=== PATIENT | male | born 1970 | race Hispanic/Latino ===

== ENCOUNTER 2018-01-15 02:38 | Observation (INO) | payer BC ==
[2018-01-15] MEDS ORDERED: Morphine 4 MG/ML VIAL ONE (03:03)
[2018-01-15] MEDS ORDERED: Ondansetron PF 4 MG/2 ML Vial ONE (03:04)
[2018-01-15 03:21] LABS: ALT (SGPT) 29 U/L (8-55); AST (SGOT) 26 U/L (5-34); Albumin 4.6 g/dL (3.5-5.0); Alkaline Phosphatase 42 U/L (40-150); Anion Gap 14 mmol/L (10-20); BUN (Urea Nitrogen) 12 mg/dL (8.9-20.6); Bilirubin, Total 0.5 mg/dL (0.2-1.2); Calc. Creatinine Clearance 0 mL/min (70-130); Carbon Dioxide 26 mmol/L (22-29); Chloride 106 mmol/L (98-107); Estimated GFR-MDRD Greater than 90; Globulin 2.6 g/dL (2.4-3.5); Glucose 156 mg/dL (70-105); Lipase 42 U/L (8-78); Potassium 3.9 mmol/L (3.5-5.1); Protein, Total 7.2 g/dL (6.0-8.3); Sodium 142 mmol/L (136-145)
[2018-01-15 03:23] LABS: CKMB 3.4 ng/mL (0-6.6); Troponin I Less than 0.010 ng/mL (< 0.028)
[2018-01-15 03:29] LABS: #Basophils 0.1 thou/uL (0.0-0.2); #Lymphocytes 0.8 thou/uL (1.20-3.40); #Monocytes 0.3 thou/uL (0.11-0.59); #Neutrophils 9.5 thou/uL (1.40-6.50); %Basophils 0.5 % (0.0-1.0); %Lymphocytes 7.5 % (21.0-51.0); %Monocytes 2.5 % (0.0-10.0); %Neutrophils 89.5 % (42.0-75.0); Mean Corpuscular HGB CONC 33.3 g/dL (32.0-36.0); Mean Corpuscular Hemoglobin 30.7 pg (27.0-31.0); Mean Corpuscular Volume 92.1 fL (78.0-98.0); Mean Platelet Volume 10.7 fL (7.4-10.4); PLT Morphology Comment Appears Decreased; Platelet Count 102 thou/uL (130-400); RBC Distribution Width 10.8 % (11.5-14.5); Red Blood Cell (RBC) Count 5.21 mill/uL (4.70-6.10); White Blood Cell (WBC) Count 10.6 thou/uL (4.8-10.8)
[2018-01-15 07:30] LABS: Troponin I Less than 0.010 ng/mL (< 0.028)
[2018-01-15] MEDS ORDERED: Nitroglycerin 0.4 MG TAB (25 Tab Bottle) PO PRN (09:03)
--- NOTE | 2018-01-15 09:06 | RAD ---
AP CHEST: History: 47-year-old presents with history of abdominal pain, left upper quadrant epigastric area. FINDINGS: AP chest obtained. The lungs are well aerated. No evidence of active intrathoracic disease seen. No e vidence of effusions, pneumonia, or pneumothorax seen. IMPRESSION: Unremarkable AP chest. POS: [facility]
[2018-01-15 10:36] LABS: Troponin I Less than 0.010 ng/mL (< 0.028)
[2018-01-15 11:49] VITALS: BMI 32.8
[2018-01-15] MEDS ORDERED: hydrALAZINE 20 MG/ML VIAL SLOW IVP PRN (12:29)
--- NOTE | 2018-01-15 12:59 | HP ---
PRIMARY CARE PROVIDER: Jn Kearney MD CHIEF COMPLAINT: Left upper quadrant pain. HISTORY OF PRESENT ILLNESS: Mr. Chaudhry is a pleasant 39-year-old gentleman who was seen at [facility] following transfer from [facility] Emergency Room on January 15, 2018. He reports that he had a heavy dinner yesterday. After that, he was resting when he developed pain i n his left upper quadrant, extending into the epigastrium. He reports that it was radiating to his b ack between his shoulder blades. He felt restless and could not sleep. He tried Pepto-Bismol and Tu ms but could not find any relief. Tylenol helped a little. He vomited twice this morning. He also had 2 bowel movements overnight, but he did not have diarrhea. His reports that he was diaphore tic. He did not have any fever. In terms of the pain itself, it was sharp and 9/10 at its worst. Behzad jimenez reports that yesterday afternoon, he did not feel well at work, but did not have any other symptoms . REVIEW OF SYSTEMS: All other systems reviewed and found to be negative. PAST MEDICAL HISTORY: Dyslipidemia and hypertension. PAST SURGICAL HISTORY: None. SOCIAL HISTORY: Rare alcohol use, no tobacco use or recreational drug use. FAMILY HISTORY: Father had abdominal aortic aneurysm repair when he was in his 80s. He also has jg betes mellitus and hypertension. His sister had hemorrhagic stroke in her 50s. ALLERGIES: No known drug allergies. CURRENT MEDICATIONS: Valsartan/hydrochlorothiazide 320/25 mg daily, Crestor 5 mg daily, and vitamin D3 of 2000 units daily. PHYSICAL EXAMINATION: GENERAL: Mr. Chaudhry is awake and alert, not in acute distress. VITAL SIGNS: Blood pressure is 137/73, pulse 76, respiratory rate 18, and oxygen saturation 94% on r oom air. He is afebrile. EYES: No scleral icterus. No conjunctival pallor. ENT: Moist mucosal membranes, no oropharyngeal erythema or exudates. NECK: Supple, nontender, trachea is midline. RESPIRATORY: Accessory muscles of breathing are not active. Chest wall movements are symmetric bila terally. LUNGS: Clear to auscultation without wheeze, rhonchi, or crepitations. CARDIOVASCULAR: S1 and S2 are heard, regular. Peripheral pulses palpable. No carotid bruit, no per icardial rub. ABDOMEN: Soft, nontender, bowel sounds are heard, no hepatomegaly, no splenomegaly. NEUROLOGIC: Cranial nerves II-XII are intact. MUSCULOSKELETAL: Power is 5/5 in all 4 extremities. SKIN: No rashes or subcutaneous nodules. LYMPHATIC: No cervical lymphadenopathy. PSYCHIATRIC: Normal mood, normal affect, patient is oriented to person, place, and time. LABORATORY DATA: Mr. Chaudhry's labs and investigations were reviewed. He had an electrocardiogram, w [facility] shows T-wave inversions in leads V3 to V6, no ST changes to suggest an acute coronary syndrome. He also had a chest x-ray, which did not show any acute cardiopulmonary abnormalities. He has kelli l white count, normal hemoglobin, decreased platelet count of 102,000, his platelet count was 123,000 on December 31, 2017, he has an unremarkable comprehensive metabolic profile and troponin I that is ne gative x3. Lipase is normal. ASSESSMENT AND PLAN: Mr. Chaudhry is a pleasant 47-year-old gentleman who was seen at [facility] on January 15, 2018. His problem list includes: 1. Abdominal pain: Mr. Chaudhry reports that he does not have the abdominal pain. Biochemistry and p hysical exam are unremarkable. Given the abnormal EKG, this could be atypical presentation of cardia c disease. We will request Cardiology Service consult. We will admit Mr. Chaudhry to Telemetry Servic e for observation. 2. Hypertension: We will continue his home medications and he is able to take oral medications. We will add p.r.n. IV hydralazine for blood pressure spikes. 3. Dyslipidemia: We will continue his statin when he is able to take oral medications. 4. Thrombocytopenia: Chronicity is unclear. I will have him follow up with his primary care provid er for further workup if needed. Many thanks for allowing me to participate in your patient's care. Please feel free to contact me wi th any questions or concerns. LEVEL OF RISK: Moderate. LEVEL OF COMPLEXITY: Moderate.
[2018-01-15] MEDS ORDERED: Communication Order-Pharmacy FS SCH (19:15)
[2018-01-15] MEDS ORDERED: Rosuvastatin 10 MG TAB PO SCH (21:00)
[2018-01-15] MEDS: Nitroglycerin 2% Ointment 1 INCH/1 GM Packet TOP SCH (21:59)
--- NOTE | 2018-01-15 23:46 | CON ---
DATE OF CONSULTATION: 01/15/2018 HISTORY: Noe Chaudhry is a 47-year-old male who denies any previous chest discomfort. Last night he ate a big meal and at 7-8 p.m. began to have some left upper quadrant pressure extending into the epigastrium. He denied any shortness of breath, nausea or vomiting, but did become diaphoretic. The pain also seemed to radiate back to his scapula. He could not sleep. He made himself vomit, which did not help. He then went to the emergency room at [facility], blood pressure initially was 170/82. He was given 324 mg of oral aspirin, morphine 4 mg IV, Zofran 4 mg IV. He states that with this, his chest pain resolved. Total duration of the pain was 7-8 hours. He states that the pain was continuously present during that time. At the present time, he is pain free. PAST MEDICAL HISTORY: Hypertension, hypercholesterolemia. No history of diabetes. MEDICATIONS: Valsartan/hydrochlorothiazide 320/25 q.a.m., Crestor 5 mg at bedtime. ALLERGIES: None. OPERATIONS: None. SOCIAL HISTORY: Does not smoke or drink. 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 FAMILY HISTORY: Negative for coronary artery disease, myocardial infarction, or sudden . His father does have an abdominal aortic aneurysm in his 80s, currently is being monitored by. REVIEW OF SYSTEMS: Twelve point review of systems otherwise unremarkable. PHYSICAL EXAMINATION: VITAL SIGNS: Blood pressure 129/66, pulse 69. HEENT: PERRL. NECK: Supple. CHEST: Clear. CARDIAC: S1 and S2 are normal, without any S3, S4 or murmurs. ABDOMEN: Normal bowel sounds, without tenderness, organomegaly. EXTREMITIES: Revealed no clubbing, cyanosis or edema. NEUROLOGIC: Grossly intact. SKIN: Warm and dry. LABORATORY DATA: EKG on admission to [facility] ER revealed significant T-wave inversion in V3 through V6, lead 1 and 2. Subsequent EKG at 5:05 a.m. showed improvement in the deep T-wave inversion and then another EKG performed at 5:15 a.m. He had resolution of the deep T-wave inversion except in V3, 1 and L. The deep T-wave inversion in V4 through V6 had resolved. Cardiac enzymes are normal. CBC is unremarkable except for platelet count 102,000. Sodium 142, potassium 3.9, chloride 106, carbon dioxide 26, BUN 12, creatinine 0.83, glucose when he arrived was 156. On 12/31/2017, cholesterol was 158, triglycerides 171, HDL 45, LDL 79. IMPRESSION: 1. Probable acute coronary syndrome with deep T-wave inversions V3 through V6 with dramatic improvement and resolution of the T-wave inversion in V4 through V6. However, he had continual 7 to 8 hours of chest pain with negative cardiac enzymes. However, I am very concerned about his EKG changes and this warrants further evaluation. 2. Hypertension. 3. Hypercholesterolemia with LDL of 79 in someone with probable coronary artery disease. 4. Hypertriglyceridemia and elevated blood sugars on last several determinations. Hemoglobin A1c will be checked. 5. Mild thrombocytopenia. PLAN: With his EKG changes and then improvement in the EKG, he needs to undergo cardiac catheterization. Risks of this were discussed including , myocardial infarction, dye reaction, vascular injury, CVA, transfusion, limb loss, renal loss, etc. with the patient and his . Also, risk of stent placement were discussed including , myocardial infarction, emergent CABG, restenosis, stent thrombosis, vessel perforation, etc. He does have mild thrombocytopenia, but does not have any history of gastrointestinal bleeding, stroke or upcoming surgeries. Overall, it was recommended that a drug-eluting stent be placed if needed. [facility]ARY
[2018-01-16 04:51] LABS: #Basophils 0.1 thou/uL (0.0-0.2); #Eosinphils 0.1 thou/uL (0.0-0.7); #Lymphocytes 2.5 thou/uL (1.20-3.40); #Neutrophils 6.1 thou/uL (1.40-6.50); %Basophils 0.6 % (0.0-1.0); %Eosinophils 0.8 % (0.0-10.0); %Lymphocytes 25.5 % (21.0-51.0); %Monocytes 10.1 % (0.0-10.0); Hemoglobin 14.7 g/dL (14.0-18.0); Mean Corpuscular HGB CONC 32.4 g/dL (32.0-36.0); Mean Corpuscular Hemoglobin 31.8 pg (27.0-31.0); Mean Corpuscular Volume 97.9 fL (78.0-98.0); Mean Platelet Volume 8.4 fL (7.4-10.4); Platelet Count 116 thou/uL (130-400); RBC Distribution Width 11.3 % (11.5-14.5); Red Blood Cell (RBC) Count 4.62 mill/uL (4.70-6.10); White Blood Cell (WBC) Count 9.7 thou/uL (4.8-10.8)
[2018-01-16 04:53] LABS: Hemoglobin A1c 5.3 % (4.0-6.0)
[2018-01-16 05:08] LABS: Anion Gap 11 mmol/L (10-20); BUN (Urea Nitrogen) 12 mg/dL (8.9-20.6); Calc. Creatinine Clearance 169 mL/min (70-130); Calcium 8.8 mg/dL (7.8-10.44); Carbon Dioxide 26 mmol/L (22-29); Chloride 107 mmol/L (98-107); Estimated GFR-MDRD Greater than 90; Glucose 95 mg/dL (70-105); Potassium 3.6 mmol/L (3.5-5.1); Sodium 140 mmol/L (136-145)
[2018-01-16] MEDS ORDERED: Sodium Chloride 0.9% 1,000 ML IV SCH ×2 (06:00→08:08)
[2018-01-16] MEDS: Nitroglycerin 2% Ointment 1 INCH/1 GM Packet TOP SCH (06:05)
[2018-01-16] MEDS ORDERED: Heparin 10,000 UNITS/1 ML VIAL ONE (06:31)
[2018-01-16] MEDS ORDERED: Lidocaine 1% (PF) 30 ML VIAL ONE ×2 (06:31→08:00)
[2018-01-16] MEDS ORDERED: Midazolam HCl 2 mg/2 ml Vial ONE (07:18)
[2018-01-16] MEDS ORDERED: Fentanyl 100 MCG/2 ML VIAL ONE (07:18)
[2018-01-16] MEDS ORDERED: Protamine Sulfate 50 MG/5 ML VIAL ONE (07:49)
[2018-01-16] MEDS ORDERED: Nitroglycerin 0.4 MG TAB (25 Tab Bottle) SL PRN (08:07)
[2018-01-16] MEDS ORDERED: Acetaminophen/Codeine 30-300mg Tablet PO PRN ×2 (08:07)
[2018-01-16] MEDS ORDERED: traMADol HCl 50 MG TAB PO PRN (08:07)
[2018-01-16] MEDS ORDERED: Sodium Chloride 0.9% 200 ML IV SCH (08:15)
[2018-01-16] MEDS ORDERED: Valsartan 80 MG TAB PO SCH ×2 (09:00)
[2018-01-16] MEDS ORDERED: Aspirin 325 MG TAB PO SCH (09:00)
[2018-01-16] MEDS: Hydrochlorothiazide 25 MG TAB PO SCH (09:54)
[2018-01-16] MEDS ORDERED: Iopamidol 370 76% 50 ML VIAL FS ONE (10:41)
[2018-01-16] MEDS ORDERED: Iopamidol 370 76% 100 ML VIAL ONE (10:41)
--- NOTE | 2018-01-16 16:51 | PDOC.PN ---
- Subjective Encounter Start Date: 01/16/18 Encounter Start Time: 09:00 Pt seen for followup re: chest pain. Denies chest pain, shortness of breath, fevers or chills. No nausea or vomiting. - Objective MAR Reviewed: Yes Vital Signs & Weight: Vital Signs (12 hours) Temp Pulse Resp BP BP Pulse Ox 01/16/18 15:53 98.4 F 66 16 122/59 L 97 01/16/18 11:10 59 L 16 109/60 95 01/16/18 08:25 97.1 F L 65 18 117/59 L 94 L 01/16/18 06:07 63 106/55 L Weight Weight 254 lb I&O: 01/15/18 01/16/18 01/17/18 06:59 06:59 06:59 Intake Total 710 1420 Output Total 1999 1450 Balance -1290 -30 Result Diagrams: 01/16/18 04:15 01/16/18 04:15 EKG Reviewed by me: Yes (Tele: NSR) Phys Exam - Physical Examination Constitutional: NAD HEENT: moist MMs Neck: supple Respiratory: clear to auscultation bilateral Cardiovascular: RRR Gastrointestinal: soft Neurological: moves all 4 limbs Psychiatric: normal affect Skin: no rash Dx/Plan (1) Chest pain Code(s): R07.9 - CHEST PAIN, UNSPECIFIED Status: Acute Comment: Improved, secondary to myocardial bridging. (2) Hypertension Code(s): I10 - ESSENTIAL (PRIMARY) HYPERTENSION Status: Chronic Comment: controlled. Pt being started on beta marni to increase time in diastole. Valsartan dose being decreased. - Plan * . Review of Systems - Review of Systems Cardiovascular: negative: chest pain, palpitations, orthopnea, paroxysmal nocturnal dyspnea, edema, light headedness Gastrointestinal: negative: Nausea, Vomiting, Abdominal Pain, Diarrhea, Constipation, Melena, Hematochezia - Medications/Allergies Allergies/Adverse Reactions: Allergies Allergy/AdvReac Type Severity Reaction Status Date / Time No Known Drug Allergies Allergy Verified 01/15/18 11:50 Medications: Current Medications Acetaminophen/Codeine Phosphate (Tylenol #3) 1 tab PO Q4H PRN PRN Reason: Mild Pain (1-3) Acetaminophen/Codeine Phosphate (Tylenol #3) 2 tab PO Q4H PRN PRN Reason: Moderate Pain (4-6) Aspirin (Ecotrin) 81 mg PO DAILY [facility] Hydralazine HCl (Apresoline) 10 mg SLOW IVP Q6H PRN PRN Reason: SBP Greater Than 170 Hydrochlorothiazide (Hydrochlorothiazide) 25 mg PO DAILY [facility] Last Admin: 01/16/18 09:54 Dose: 25 mg Metoprolol Succinate (Toprol Xl) 50 mg PO DAILY [facility] Last Admin: 01/16/18 09:54 Dose: 50 mg Nitroglycerin (Nitrostat) 0.4 mg SL Q5MIN PRN PRN Reason: Chest Pain Rosuvastatin Calcium (Crestor) 5 mg PO HS [facility] Sodium Chloride (Flush - Normal Saline) 10 ml IVF Q12HR [facility] Last Admin: 01/16/18 06:07 Dose: 10 ml Sodium Chloride (Flush - Normal Saline) 10 ml IVF PRN PRN PRN Reason: Saline Flush Tramadol HCl (Ultram) 50 mg PO Q6H PRN PRN Reason: Moderate Pain (4-6) Valsartan (Diovan) 160 mg PO DAILY [facility] Last Admin: 01/16/18 09:54 Dose: 160 mg
[2018-01-16] MEDS ORDERED: Rosuvastatin 5 MG TAB PO SCH (21:00)
[2018-01-17 05:18] VITALS: TEMP 98.2
[2018-01-17 08:33] VITALS: BP 129/60
[2018-01-17] MEDS ORDERED: Olmesartan 5 MG TAB PO SCH (09:00)
[2018-01-17] MEDS ORDERED: Aspirin 81 mg Enteric Coated Tablet PO SCH (09:00)
[2018-01-17] MEDS: Hydrochlorothiazide 25 MG TAB PO SCH (09:43)
--- NOTE | 2018-01-17 11:48 | DIS ---
DATE OF ADMISSION: 01/15/2018 DATE OF DISCHARGE: 01/17/2018 PRIMARY CARE PHYSICIAN: Jn Kearney MD DISCHARGE DISPOSITION: Home. PRIMARY DISCHARGE DIAGNOSES: 1. Chest pain. 2. Single three-vessel coronary artery disease. SECONDARY DISCHARGE DIAGNOSES: Hypertension, dyslipidemia, obesity with BMI 31. PRIMARY PROCEDURE/OPERATION: Cardiac catheterization by Dr. Medina and found with one-vessel coron ladi artery disease. SIGNIFICANT LABORATORY DATA: WBC 9.7, hemoglobin 14.7, and platelets 116. Sodium 140, potassium 3.6 , creatinine 0.86. Cardiac enzymes negative. LFT normal. DISCHARGE MEDICATIONS: Aspirin 81 mg p.o. daily, Metoprolol XL 50 mg p.o. daily, olmesartan with hyd rochlorothiazide 1 tablet p.o. daily, and Crestor 5 mg p.o. daily. CONTRAINDICATIONS: None. CODE STATUS: FULL CODE. INPATIENT CONSULTANTS: Dr. Medina was following while in hospital. TEST RESULTS PENDING ON DISCHARGE: None. ALLERGIES: No known drug allergy. DISCHARGE PLAN: Post hospital, the patient will follow up with primary care physician in 1 week and patient is instructed to follow up with Dr. Medina in 1 week. HOSPITAL COURSE: A 47-year-old male who was admitted by Dr. Mitchell, please see his H and P for furthe r detail. The patient was admitted for chest pain. The patient had negative cardiac enzyme. The pa tient was evaluated by Cardiology. Cardiology did cardiac catheterization. The patient was found wi th one-vessel coronary artery disease. The patient was observed in hospital for 24 hours after cardi ac catheterization. The patient is seen and examined at bedside today. PHYSICAL EXAMINATION: VITAL SIGNS: Currently, temperature 98.2, pulse 60, respiratory rate 16, blood pressure 129/60, satu ration 92% on room air, and weight 248 pounds. GENERAL: The patient is currently alert, awake, no obvious acute distress. HEAD: Normocephalic, atraumatic. EYES: Pupils round, reactive to light. Extraocular muscle intact. ENT: Oropharynx within normal limits. Moist mucous membrane, no oral lesion, no pharyngeal erythema , no exudate. NECK: Supple, no JVD, no thyromegaly, no carotid bruit. LUNGS: Clear to auscultation without any rhonchi or rales. CARDIAC: S1 and S2 regular without any murmur. ABDOMEN: Soft and benign without any tenderness. EXTREMITIES: No edema. NEUROLOGIC: Nonfocal examination. Overall, the patient is medically stable for discharge. Plan of care discussed with the patient and his at bedside.
== END 2018-01-17 10:44 | disposition home or self-care (01) ==
LOC: ERS 02:38 → 2SW 11:35
PROVIDERS: ADMIT Internal Medicine; ATTEND Internal Medicine
PROC: 4A023N7 Measurement of Cardiac Sampling and Pressure, Left Heart, Percutaneous Approach (ICD-10-PCS; principal; 2018-01-16)
PROC: B2111ZZ Fluoroscopy of Multiple Coronary Arteries using Low Osmolar Contrast (ICD-10-PCS; 2018-01-16)
DX: I25.10 Atherosclerotic heart disease of native coronary artery without angina pectoris (principal); I10 Essential (primary) hypertension; E78.5 Hyperlipidemia, unspecified; D69.6 Thrombocytopenia, unspecified; E66.9 Obesity, unspecified; Z68.31 Body mass index [BMI] 31.0-31.9, adult; Z79.82 Long term (current) use of aspirin; Z79.899 Other long term (current) drug therapy
CPT/HCPCS: 36415; 71045; 80048; 80053; 82553; 83036; 83690; 84484; 85025; 85347; 90471; 90686; 93005; 93010; 93458; 96361; 96374; 96375; 99152; C1769; G0008; G0378; J1644; J2001; J2250; J2270; J2405; J2720; J3010

== ENCOUNTER 2018-01-31 06:59 | Outpatient (CLI) | payer BC ==
--- NOTE | 2018-01-31 07:57 | ULT ---
ABDOMINAL ULTRASOUND: DATE: 01/31/2018. HISTORY: Upper abdominal pain for a couple of weeks. FINDINGS: Pancreas is obscured by bowel gas. Visualized portions of the IVC and abdominal aorta demonstrate a normal sonographic appearance. The liver demonstrates increased echogenicity likely attributable to fatty infiltration. There is a small shadowing echogenic focus within the gallbladder lumen related to cholelithiasis. T here is no gallbladder wall thickening or pericholecystic fluid identified. The common duct measured 0.5 cm in diameter, which is within normal limits. The spleen is not well imaged on this examination, but where visualized has a grossly normal sonograp hic appearance. There is obscuration due to adjacent shadowing bowel gas and overlying ribs. The right kidney has a normal sonographic appearance and measured 11.4 cm in length. The left kidney measures larger in size measuring 14.4 cm in length. There is a small 1.8 cm anechoic cystic struct ure at the inferior pole of the left kidney demonstrating characteristics most suggestive of a small cyst. IMPRESSION: 1. Diffuse fatty infiltration of the liver. 2. Cholelithiasis. 3. Left renal cyst. POS: [facility]
== END 2018-01-31 07:00 | disposition home or self-care (01) ==
LOC: SCSULT 06:59
PROVIDERS: ATTEND Family Medicine
DX: R10.10 Upper abdominal pain, unspecified (principal); K76.0 Fatty (change of) liver, not elsewhere classified; K80.20 Calculus of gallbladder without cholecystitis without obstruction; N28.1 Cyst of kidney, acquired
CPT/HCPCS: 76700

== ENCOUNTER 2018-02-20 08:00 | Outpatient (CLI) | payer BC ==
[2018-02-20 09:36] LABS: #Basophils 0.1 thou/uL (0.0-0.2); #Monocytes 0.4 thou/uL (0.11-0.59); %Basophils 1.2 % (0.0-1.0); %Eosinophils 0.3 % (0.0-10.0); %Lymphocytes 21.4 % (21.0-51.0); %Monocytes 9.6 % (0.0-10.0); %Neutrophils 67.6 % (42.0-75.0); Hemoglobin 15.9 g/dL (14.0-18.0); Mean Corpuscular HGB CONC 33.7 g/dL (32.0-36.0); Mean Corpuscular Hemoglobin 32.7 pg (27.0-31.0); Mean Corpuscular Volume 96.9 fL (78.0-98.0); Mean Platelet Volume 9.4 fL (7.4-10.4); Platelet Count 108 thou/uL (130-400); RBC Distribution Width 11.2 % (11.5-14.5); Red Blood Cell (RBC) Count 4.85 mill/uL (4.70-6.10); White Blood Cell (WBC) Count 4.5 thou/uL (4.8-10.8)
[2018-02-20 09:42] LABS: Anion Gap 12 mmol/L (10-20); BUN (Urea Nitrogen) 12 mg/dL (8.9-20.6); Calc. Creatinine Clearance 0 mL/min (70-130); Calcium 10.3 mg/dL (7.8-10.44); Carbon Dioxide 28 mmol/L (22-29); Chloride 106 mmol/L (98-107); Estimated GFR-MDRD 90; Glucose 103 mg/dL (70-105); Sodium 142 mmol/L (136-145)
[2018-02-20 09:44] LABS: ALT (SGPT) 26 U/L (8-55); AST (SGOT) 22 U/L (5-34); Albumin 4.7 g/dL (3.5-5.0); Alkaline Phosphatase 42 U/L (40-150); Bilirubin, Direct 0.4 mg/dL (0.1-0.3); Bilirubin, Total 0.9 mg/dL (0.2-1.2); Protein, Total 7.5 g/dL (6.0-8.3)
== END 2018-02-20 08:01 | disposition home or self-care (01) ==
LOC: LABBT 08:00
PROVIDERS: ATTEND Surgery
DX: Z01.812 Encounter for preprocedural laboratory examination (principal); K80.20 Calculus of gallbladder without cholecystitis without obstruction
CPT/HCPCS: 80048; 80076; 85025

== ENCOUNTER 2018-02-21 10:31 | Inpatient (IN) | payer BC ==
[2018-02-21] MEDS ORDERED: Ondansetron PF 4 MG/2 ML Vial ONE (11:22)
[2018-02-21] MEDS ORDERED: PROPOFOL 200 MG/20 ML VIAL ONE (11:22)
[2018-02-21] MEDS ORDERED: Glycopyrrolate 0.2 MG/ML 5 ML SYRINGE ONE (11:22)
[2018-02-21] MEDS ORDERED: Dexamethasone 20 MG/5 ML VIAL ONE (11:22)
[2018-02-21] MEDS ORDERED: Ketorolac Tromethamine 30 MG/ML VIAL ONE (11:22)
[2018-02-21] MEDS ORDERED: ePHEDrine/0.9% NaCl/PF SYRINGE 50 mg/10 ml ONE ×2 (11:22→20:11)
[2018-02-21] MEDS ORDERED: Lidocaine 1% PF 5 ML VIAL ONE (11:22)
[2018-02-21] MEDS ORDERED: Bupivacaine/Epinephrine 0.25% 30 ML VIAL ONE (12:05)
[2018-02-21] MEDS ORDERED: Fentanyl 100 MCG/2 ML VIAL ONE ×2 (12:21→14:20)
[2018-02-21] MEDS ORDERED: Iothalamate Meglumine 60% 50 ML VIAL FS ONE (13:40)
--- NOTE | 2018-02-21 14:56 | RAD ---
CHOLANGIOGRAM IN SURGERY: COMPARISON: Abdominal ultrasound 01/31/2018. HISTORY: Cholelithiasis. FINDINGS/IMPRESSION: Two limited intraoperative fluoroscopic views from a cholangiogram taken in surgery were submitted fo r interpretation. Contrast is seen within the cystic duct, common bile duct, and duodenum. There is a small filling defect in the cystic duct which may represent the balloon. No other filling defects are appreciated. No biliary dilatation is present. POS: [facility]
[2018-02-21] MEDS ORDERED: HYDROcodone/Acetaminophen 5/325 mg Tablet ONE (16:42)
[2018-02-21 20:44] LABS: Hemoglobin 12.1 g/dL (14.0-18.0)
[2018-02-21 21:41] LABS: Anion Gap 9 mmol/L (10-20); BUN (Urea Nitrogen) 12 mg/dL (8.9-20.6); Calc. Creatinine Clearance 153 mL/min (70-130); Calcium 8.3 mg/dL (7.8-10.44); Carbon Dioxide 25 mmol/L (22-29); Chloride 106 mmol/L (98-107); Estimated GFR-MDRD Greater than 90; Glucose 167 mg/dL (70-105); Potassium 4.1 mmol/L (3.5-5.1); Sodium 136 mmol/L (136-145)
[2018-02-21 21:45] LABS: Troponin I Less than 0.010 ng/mL (< 0.028)
--- NOTE | 2018-02-21 22:34 | HP ---
CHIEF COMPLAINT: Vasovagal episodes, multiple postoperative. HISTORY OF PRESENT ILLNESS: This is a 47-year-old male who underwent laparoscopic cholecystectomy with intraoperative cholangiogram that was normal today, middle of the day. Postoperative, he has had several episodes of vasovagal episodes, where he is hypertensive and he gets bradycardiac. He does respond by getting back in bed and putting his head down. Of note, Mr. Chaudhry was admitted to the hospital a month ago for split T-waves, had cardiac cath by Dr. Medina with no significant coronary artery disease. At that time, he was started on a beta-marni, which he took last night. He has mild pain in his upper abdomen. He has small hematoma in the right lateral incision. His repeat H and H is 12 and 35. He has a history of chronic low platelets and is set to see Hematology as an outpatient soon, they were 108 preoperatively. PAST MEDICAL HISTORY: Hypertension, hyperlipidemia, and cardiac workup. PAST SURGICAL HISTORY: As above. MEDICATIONS: Medicines taken daily include; 1. Statin. 2. Metoprolol. ALLERGIES: NO KNOWN DRUG ALLERGIES. SOCIAL HISTORY: No smoking, alcohol, or other drugs. . REVIEW OF SYSTEMS: A 10-systems review of systems otherwise negative except as described above. PHYSICAL EXAMINATION: VITAL SIGNS: Pulse now 72 and blood pressure 106/78, he is afebrile. CHEST: Clear. HEART: Regular rate and rhythm. ABDOMEN: Soft, nondistended, and appropriately tender. LABORATORY DATA: Hemoglobin is 12 and hematocrit is 35.5. His chemistry and troponins are pending as well as a free cortisol. A 12-lead EKG looks similar to previous. ASSESSMENT: Postoperative laparoscopic cholecystectomy with intraoperative cholangiogram now with sustained multiple vasovagal episodes, not able to be discharged. PLAN: Admit to the [facility] for observation and telemetry. We will place a catheter overnight. He is not able to void. Recheck labs in the morning. We will continue IV fluids, but allow clear liquids. Job ID: [id number]
[2018-02-21] MEDS ORDERED: hydrALAZINE 20 MG/ML VIAL SLOW IVP PRN (22:46)
[2018-02-21] MEDS ORDERED: Dextrose 5% in Water 1,000 ML IV PRN (22:46)
[2018-02-21] MEDS ORDERED: HYDROcodone/Acetaminophen 10/325 mg Tablet PO PRN (22:46)
[2018-02-21] MEDS ORDERED: Acetaminophen 325 MG TAB PO PRN (22:46)
[2018-02-21] MEDS ORDERED: Ondansetron PF 4 MG/2 ML Vial IVP PRN (22:46)
[2018-02-21] MEDS ORDERED: Calcium Carbonate 500 MG ChewTAB PO PRN (22:46)
[2018-02-21] MEDS ORDERED: Morphine 2 MG/ML SYRINGE SLOW IVP PRN (22:46)
[2018-02-21] MEDS ORDERED: Mag-Al 1200 mg/1200 mg/30 ML UDCUP PO PRN (22:46)
[2018-02-21] MEDS ORDERED: Promethazine HCl 25 MG/ML VIAL IM PRN (22:46)
[2018-02-21] MEDS ORDERED: Dextrose 50% Abboject 50 ML SYRINGE SLOW IVP PRN (22:46)
[2018-02-21 23:13] VITALS: BMI 32.6
[2018-02-22] MEDS: Sodium Chloride 0.9% 1,000 ML IV SCH ×3 (00:29→20:40)
[2018-02-22 02:08] LABS: Troponin I Less than 0.010 ng/mL (< 0.028)
[2018-02-22 03:33] LABS: #Lymphocytes 0.6 thou/uL (1.20-3.40); #Monocytes 0.6 thou/uL (0.11-0.59); #Neutrophils 10.9 thou/uL (1.40-6.50); %Eosinophils 0.1 % (0.0-10.0); %Lymphocytes 4.5 % (21.0-51.0); %Neutrophils 90.3 % (42.0-75.0); Hemoglobin 10.3 g/dL (14.0-18.0); Mean Corpuscular HGB CONC 35.3 g/dL (32.0-36.0); Mean Corpuscular Hemoglobin 34.1 pg (27.0-31.0); Mean Corpuscular Volume 96.6 fL (78.0-98.0); Mean Platelet Volume 10.2 fL (7.4-10.4); Platelet Count 111 thou/uL (130-400); RBC Distribution Width 10.9 % (11.5-14.5); Red Blood Cell (RBC) Count 3.01 mill/uL (4.70-6.10)
[2018-02-22] MEDS: Morphine 4 MG/ML VIAL SLOW IVP PRN ×2 (03:37→06:33)
[2018-02-22 03:45] LABS: ALT (SGPT) 23 U/L (8-55); AST (SGOT) 21 U/L (5-34); Albumin 3.2 g/dL (3.5-5.0); Alkaline Phosphatase 27 U/L (40-150); Anion Gap 11 mmol/L (10-20); BUN (Urea Nitrogen) 12 mg/dL (8.9-20.6); Bilirubin, Total 0.7 mg/dL (0.2-1.2); Calc. Creatinine Clearance 175 mL/min (70-130); Calcium 8.3 mg/dL (7.8-10.44); Carbon Dioxide 23 mmol/L (22-29); Chloride 106 mmol/L (98-107); Estimated GFR-MDRD Greater than 90; Globulin 1.7 g/dL (2.4-3.5); Glucose 172 mg/dL (70-105); Potassium 4.1 mmol/L (3.5-5.1); Protein, Total 4.9 g/dL (6.0-8.3); Sodium 136 mmol/L (136-145)
--- NOTE | 2018-02-22 05:29 | CON ---
DATE OF CONSULTATION: CHIEF COMPLAINT: Abdominal pain. HISTORY OF PRESENT ILLNESS: This is a 47-year-old male with past medical history of hypertension, hyperlipidemia, and cardiac workup in the past, presenting with abdominal pain. The patient was having abdominal pain after eating, therefore, the patient visited his primary care physician, who did an ultrasound and found that the patient did have some gallstones. The patient was then brought to the hospital to see Dr. aMuro, who then brought the patient to the OR where the patient underwent laparoscopic cholecystectomy with intraoperative cholangiogram. Status post surgery, the patient started having vasovagal episodes, therefore, the patient has been admitted and is going to be brought to the [facility] to be evaluated overnight. At this point, the patient admits to feeling some discomfort in the abdomen especially at the left upper quadrant and around some possible infusion sites. The patient denies any chest pain, palpitation, fever, nausea, or vomiting. Of note, the patient was recently admitted to our hospital on 01/15/2018 due to abdominal discomfort and during that time, the patient had an EKG, which showed some T-wave abnormalities. Therefore, Cardiology was consulted to evaluate the patient during that time. A cardiac catheterization was done and the patient was found to have one-vessel coronary artery disease. The patient was then started on beta-blockers and the patient was discharged. REVIEW OF SYSTEMS: Positive for dizziness and abdominal tightness, otherwise all other systems have been reviewed and are negative. PAST MEDICAL HISTORY: Hypertension, hyperlipidemia, and coronary artery disease. FAMILY HISTORY: Reviewed and noncontributory to this visit. PAST SURGICAL HISTORY: Cholecystectomy. PSYCHIATRIC HISTORY: No psych history. SOCIAL HISTORY: The patient denies any alcohol use. Denies any illicit drugs. Denies any smoking history. The patient is . 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 CURRENT MEDICATIONS: The patient takes 1. Statin. 2. Metoprolol. ALLERGIES: NO KNOWN DRUG ALLERGIES. PHYSICAL EXAMINATION: VITAL SIGNS: Blood pressure 106/78, pulse of 72, temperature of 98.1, and saturating at 100% on room air. GENERAL: The patient is pleasant, alert and oriented x4, not in acute distress. The patient is lying in bed comfortably, speaking in full sentences. is by the bedside. HEENT: Normocephalic and atraumatic. Pupils are equally round and reactive to light. Extraocular movements are intact. No scleral icterus. No conjunctival pallor. Mucous membranes are dry. NECK: Supple. No JVD. Trachea is midline. Full range of motion. LUNGS: Clear to auscultation bilaterally. No wheezing, no rales, no rhonchi is appreciated. CARDIAC: Positive S1 and S2. The patient is tachycardiac. No murmurs appreciated. ABDOMEN: The patient's abdomen is slightly distended. Hypoactive bowel sounds. Tenderness on palpation at the abdomen. The patient has mild hematoma on the periumbilical incision site. Otherwise, the patient does not have any ecchymosis or peritoneal signs. EXTREMITIES: The patient has 5/5 upper extremity strength and 5/5 lower extremity strength. No edema noted at the lower extremities or the upper extremities. The patient does have good pulses bilaterally at the upper and lower extremities. SKIN: Refer to abdominal description. PSYCHIATRIC: Alert and oriented x4. Normal affect. LABORATORY DATA: The patient's WBC is 12.0, hemoglobin is 10.3, hematocrit is 29.1, and platelets of 111. Sodium is 136, potassium is 3.8, chloride is 106, carbon dioxide of 22, anion gap of 11, BUN is 12, creatinine is 0.81, glucose of 172, and hemoglobin is 5.3%. AST is 21, ALT is 23, and alkaline phophatase is 27. Troponin is less than 0.010. Abdominal x-ray that was done shows the patient does have some dilated bowel loops. ASSESSMENT AND PLAN: This is a 47-year-old male with past medical history of hypertension and coronary artery disease being admitted for: 1. Vasovagal syndrome status post laparoscopic cholecystectomy. After the patient had surgery, the patient has been dizzy and the patient's blood pressure has been dropped to low every time when the patient gets up. Therefore, we are admitting the patient to the [facility] to be evaluated further. At this point, we will continue the patient on IV hydration and we will monitor the patient closely. 2. Abdominal discomfort, likely secondary to cholecystectomy. At this point, we have ordered x-ray of the abdomen, which shows that the patient does have dilated bowel loops. We will keep the patient n.p.o. for bowel rest and we will monitor the patient closely. We will continue IV fluids. 3. Leukocytosis, likely reactive. The patient has a white count, but the patient does not have fever, chills, or any signs or infection. Per the literature, there is no need for empiric antibiotics at this time. We will observe the patient at this time and we will start the patient on antibiotics when it is indicated. 4. History of hypertension. We will monitor the patient's blood pressure closely. The patient is currently hypotensive. We will continue IV hydration. 5. Hyperlipidemia. We will monitor the patient at this time. The patient is currently n.p.o. 6. Deep vein thrombosis and gastrointestinal prophylaxis. Job ID: [id number]
[2018-02-22] MEDS ORDERED: Cosyntropin 250 MCG VIAL SLOW IVP SCH ×2 (08:15→09:00)
--- NOTE | 2018-02-22 08:40 | RAD ---
PORTABLE CHEST 1 VIEW: DATE: 02/22/2018. TIME: 12:50 a.m. HISTORY: Status post laparoscopic cholecystectomy, hypotension. FINDINGS: Comparison is made with the exam of 01/15/2018. There is continued mild elevation of the right hemidiaphragm. The heart size is normal. No focal ar eas of consolidation, pneumothorax, travis pulmonary edema, or pleural effusions are seen. There are degenerative changes in the spine. IMPRESSION: No acute process. POS: [facility]
--- NOTE | 2018-02-22 08:43 | RAD ---
ABDOMEN 1 VIEW: HISTORY: Status post cholecystectomy, hypotension. FINDINGS/IMPRESSION: Thee is gaseous distention of the stomach. There are changes of cholecystectomy. Air is noted in no ndilated loops of small and large bowel. There is contrast in the colon. Degenerative changes are p resent in the spine. POS: [facility]
[2018-02-22] MEDS: Famotidine 20 MG TAB PO SCH ×2 (09:19→20:38)
[2018-02-22] MEDS: Famotidine/PF 20 mg/2ml Vial SLOW IVP SCH ×2 (13:15→20:43)
--- NOTE | 2018-02-22 15:43 | PRG ---
DATE OF SERVICE: 02/22/2018 SUBJECTIVE: Mr. Chaudhry still has dizziness when he tries to change position, although this afternoon he is sitting at the bedside and it has improved. He still feels weak. He feels bloated in his abdomen. OBJECTIVE: VITAL SIGNS: His pulse now is 120, blood pressure is 154/84, respirations are 12, and O2 saturation 97% on room air. GENITOURINARY: Urine output was good overnight. His catheter has been removed. He is due to void. ABDOMEN: Slightly distended. There is tenderness at the incisions. LABORATORY DATA: White cell count is 12, hemoglobin is 10, and platelet count is 111. Sodium 136, potassium 4.1, and creatinine 0.81. His cortisol level last night was 13.4. Cosyntropin response test is pending. ASSESSMENT: Postop laparoscopic cholecystectomy with persistent sustained vasovagal response with movement. Hemoglobin was 10 this morning. PLAN: Continue observation. Appreciate Dr. Wharton's assistance. Recheck labs in the morning. Advance to GI soft diet as tolerated. Job ID: [id number]
--- NOTE | 2018-02-22 16:06 | OP ---
DATE OF PROCEDURE: 02/21/2018 PREOPERATIVE DIAGNOSIS: Symptomatic gallstones. POSTOPERATIVE DIAGNOSIS: Symptomatic gallstones. PROCEDURE PERFORMED: Laparoscopic cholecystectomy with intraoperative cholangiogram. ANESTHESIA: General. ESTIMATED BLOOD LOSS: Minimal. COMPLICATIONS: None. SPECIMEN: Gallbladder. FINDINGS: Normal cholangiogram. DESCRIPTION OF PROCEDURE: The patient was taken to the operating room and laid supine on the operating room table. After general anesthetic was obtained, the abdomen was shaved, prepped, and draped in a sterile fashion. A curved incision was made below the umbilicus. Cautery was used to dissect down the fascia, the abdominal cavity Nathalia clamp. Holding stitch of PDS was placed on each side of the fascia. Cailin trocar was placed. High-flow pneumoperitoneum was obtained. Upper midline 5 mm port and 2 right upper quadrant 5 mm ports were placed under direct visualization. The gallbladder was retracted from the gallbladder fossa. The peritoneum was opened anteriorly and posteriorly. The critical view triangle was seen, showing only the cystic duct and cystic artery branching medial to lateral. There were no other branching structures. A clip was placed high on the cystic duct and a small ductotomy was made just proximal to that. A cholangiocatheter was brought in through a separate stab incision, placed in the cystic duct and a cholangiogram was performed, which shows good contrast flow into the duodenum without obstruction. Cholangiocatheter was removed and two clips were placed proximally on the cystic duct. The cystic artery was taken using two clips proximally, one clip distally, and cut using laparoscopic scissors. Cautery was used to dissect the gallbladder from the gallbladder fossa. Gallbladder was placed in an EndoCatch bag and brought out through the Cailin. All port sites were infiltrated using local anesthetic. All ports were removed under direct visualization without bleeding. Pneumoperitoneum was let down. PDS was used to close the fascial defect below the umbilicus. All incisions were irrigated and closed using 4-0 Monocryl and Dermabond. The patient was sent to Recovery in stable condition. All instrument counts, needle counts, and lap counts were correct. Job ID: [id number]
[2018-02-22] MEDS ORDERED: Mag-Al 1200 mg/1200 mg/30 ML UDCUP PO PRN (17:41)
[2018-02-22] MEDS ORDERED: Calcium Carbonate 500 MG ChewTAB PO PRN (17:41)
[2018-02-22] MEDS ORDERED: Ondansetron PF 4 MG/2 ML Vial IVP PRN (17:42)
[2018-02-22] MEDS ORDERED: Promethazine HCl 25 MG/ML VIAL IM PRN (17:42)
[2018-02-22] MEDS ORDERED: Morphine 2 MG/ML SYRINGE SLOW IVP PRN (17:42)
[2018-02-22] MEDS ORDERED: Dextrose 5% in Water 1,000 ML IV PRN (17:42)
[2018-02-22] MEDS ORDERED: Dextrose 50% Abboject 50 ML SYRINGE SLOW IVP PRN (17:42)
[2018-02-22] MEDS ORDERED: Morphine 4 MG/ML VIAL SLOW IVP PRN (17:42)
--- NOTE | 2018-02-22 17:50 | PDOC.PN ---
- Subjective Encounter Start Date: 02/22/18 Encounter Start Time: 17:48 Pt seen for followup re: orthostatic hypotension. Denies chest pain or shortness of breath. - Objective MAR Reviewed: Yes Vital Signs & Weight: Vital Signs (12 hours) Temp Pulse Resp BP Pulse Ox 02/22/18 15:56 98.6 F 102 H 24 H 115/87 02/22/18 11:33 98.8 F 94 25 H 155/84 H 97 02/22/18 07:24 99.3 F 85 22 H 126/67 96 02/22/18 06:41 98 Weight Weight 247 lb 11.2 oz I&O: 02/21/18 02/22/18 02/23/18 06:59 06:59 06:59 Intake Total 1162 Output Total 615 Balance 547 Result Diagrams: 02/22/18 01:25 02/22/18 01:25 EKG Reviewed by me: Yes (Tele: NSR) Phys Exam - Physical Examination Obese HEENT: moist MMs Neck: supple Respiratory: clear to auscultation bilateral Cardiovascular: RRR Gastrointestinal: soft Neurological: moves all 4 limbs Psychiatric: normal affect Dx/Plan (1) Orthostatic hypotension Code(s): I95.1 - ORTHOSTATIC HYPOTENSION Status: Acute Comment: ? secondary to anesthetics. Cosyntropin stim test done, negative. Will trial stockings if no improvement in AM. (2) Cholelithiasis Code(s): K80.20 - CALCULUS OF GALLBLADDER W/O CHOLECYSTITIS W/O OBSTRUCTION Status: Acute Comment: s/p cholecystectomy - Plan * . Review of Systems - Review of Systems Cardiovascular: negative: chest pain, palpitations, orthopnea, paroxysmal nocturnal dyspnea, edema, light headedness Gastrointestinal: negative: Nausea, Vomiting, Abdominal Pain, Diarrhea, Constipation, Melena, Hematochezia - Medications/Allergies Allergies/Adverse Reactions: Allergies Allergy/AdvReac Type Severity Reaction Status Date / Time No Known Drug Allergies Allergy Verified 02/20/18 08:29 Medications: Current Medications Acetaminophen (Tylenol) 650 mg PO Q4H PRN PRN Reason: Headache/Fever Or Mild Pain Al Hydroxide/Mg Hydroxide (Maalox) 15 ml PO Q6H PRN PRN Reason: Dyspepsia Albuterol/Ipratropium (Duoneb) 3 ml NEB Q4H PRN PRN Reason: Wheezing Calcium Carbonate (Tums) 1,000 mg PO Q4H PRN PRN Reason: Dyspepsia Dextrose/Water (Dextrose 50%) 25 gm SLOW IVP PRN PRN PRN Reason: Hypoglycemia Famotidine (Pepcid) 20 mg PO Q12HR [facility] Last Admin: 02/22/18 09:19 Dose: 20 mg Famotidine (Pepcid) 20 mg SLOW IVP Q12HR [facility] Last Admin: 02/22/18 13:15 Dose: Not Given Glucagon (Glucagon) 1 mg IM PRN PRN PRN Reason: Hypoglycemia Dextrose/Water (D5w) 1,000 mls @ 0 mls/hr IV .Q0M PRN PRN Reason: Hypoglycemia Sodium Chloride (Normal Saline 0.9%) 1,000 mls @ 120 mls/hr IV .Q8H20M [facility] Morphine Sulfate (Morphine) 2 mg SLOW IVP Q2H PRN PRN Reason: Mild-Moderate Pain (1-5) Morphine Sulfate (Morphine) 4 mg SLOW IVP Q2H PRN PRN Reason: Moderate to Severe Pain (6-10) Ondansetron HCl (Zofran) 4 mg IVP Q6H PRN PRN Reason: Nausea/Vomiting Promethazine HCl (Phenergan) 12.5 mg IM Q4H PRN PRN Reason: Nausea/Vomiting
[2018-02-22] MEDS: Acetaminophen 325 MG TAB PO PRN ×2 (19:25→23:24)
--- NOTE | 2018-02-22 22:37 | EKG ---
Test Reason : STAT Blood Pressure : / mmHG Vent. Rate : 064 BPM Atrial Rate : 064 BPM P-R Int : 156 ms QRS Dur : 082 ms QT Int : 436 ms P-R-T Axes : 033 055 217 degrees QTc Int : 449 ms Normal sinus rhythm Left ventricular hypertrophy with repolarization abnormality Abnormal ECG When compared with ECG of 17-JAN-2018 07:58, (Unconfirmed) No significant change was found Confirmed by MATTY HERRON, . SHakan (4) on 02/22/2018 10:37:32 PM Referred By: FAVIAN Confirmed By:DR. Modesto STARR MD
--- NOTE | 2018-02-22 22:39 | EKG ---
Test Reason : STAT Blood Pressure : / mmHG Vent. Rate : 076 BPM Atrial Rate : 076 BPM P-R Int : 152 ms QRS Dur : 080 ms QT Int : 390 ms P-R-T Axes : 032 051 -87 degrees QTc Int : 438 ms Normal sinus rhythm Left ventricular hypertrophy with repolarization abnormality Abnormal ECG When compared with ECG of 21-FEB-2018 18:33, (Unconfirmed) No significant change was found Confirmed by MATTY HERRON, . SHakan (4) on 02/22/2018 10:38:49 PM Referred By: FAVIAN Confirmed By:DR. Modesto STARR MD
[2018-02-23 04:09] LABS: #Lymphocytes 2.4 thou/uL (1.20-3.40); #Monocytes 1.3 thou/uL (0.11-0.59); #Neutrophils 9.2 thou/uL (1.40-6.50); %Basophils 0.2 % (0.0-1.0); %Eosinophils 0.2 % (0.0-10.0); %Lymphocytes 18.6 % (21.0-51.0); %Monocytes 9.9 % (0.0-10.0); %Neutrophils 71.2 % (42.0-75.0); Hemoglobin 7.8 g/dL (14.0-18.0); Mean Corpuscular HGB CONC 34.5 g/dL (32.0-36.0); Mean Corpuscular Hemoglobin 33.4 pg (27.0-31.0); Mean Corpuscular Volume 96.8 fL (78.0-98.0); Mean Platelet Volume 9.2 fL (7.4-10.4); Platelet Count 98 thou/uL (130-400); RBC Distribution Width 11.5 % (11.5-14.5); Red Blood Cell (RBC) Count 2.34 mill/uL (4.70-6.10); White Blood Cell (WBC) Count 12.9 thou/uL (4.8-10.8)
[2018-02-23 04:43] LABS: Chloride 105 mmol/L (98-107); Potassium 4.3 mmol/L (3.5-5.1); Sodium 136 mmol/L (136-145)
[2018-02-23 04:44] LABS: Calcium 8.5 mg/dL (7.8-10.44); Glucose 119 mg/dL (70-105)
[2018-02-23 04:46] LABS: Anion Gap 10 mmol/L (10-20); Carbon Dioxide 25 mmol/L (22-29)
[2018-02-23 04:47] LABS: Calc. Creatinine Clearance 165 mL/min (70-130); Estimated GFR-MDRD Greater than 90
[2018-02-23 04:48] LABS: BUN (Urea Nitrogen) 12 mg/dL (8.9-20.6)
[2018-02-23] MEDS: Acetaminophen 325 MG TAB PO PRN ×3 (04:54→21:07)
[2018-02-23] MEDS: Sodium Chloride 0.9% 1,000 ML IV SCH ×3 (04:54→18:10)
--- NOTE | 2018-02-23 08:48 | PRG ---
DATE OF SERVICE: 02/23/2018 SUBJECTIVE: Mr. Chaudhry is doing better today. He still feels weak, but he is able to get up and walk. He tolerated some food without difficulty. His breathing is much improved. He said his bloating is much improved. Blood pressure is 120/56, pulse 88, respirations 15, and O2 saturation 95% on room air. Urine output is good. He is able to void without difficulty. His abdomen is soft, less distended. No significant bruising or infection at the sites. White blood cell count is 12, hemoglobin 7.8, and platelet count is 98. Sodium 136, creatinine 0.86. ASSESSMENT: Postoperative laparoscopic cholecystectomy with hemodynamic instability of uncertain etiology, likely insensitivity to beta blockers and anesthetic, improved. PLAN: Home later today, if still doing well. Follow up with me in 2 weeks. We will make sure Dr. Wharton is okay with him going home. Job ID: [id number]
[2018-02-23 10:35] LABS: ALT (SGPT) 19 U/L (8-55); AST (SGOT) 19 U/L (5-34); Albumin 3.6 g/dL (3.5-5.0); Alkaline Phosphatase 26 U/L (40-150); Bilirubin, Direct 0.2 mg/dL (0.1-0.3); Bilirubin, Total 0.5 mg/dL (0.2-1.2); Protein, Total 5.4 g/dL (6.0-8.3)
--- NOTE | 2018-02-23 11:48 | PRG ---
DATE OF SERVICE: 02/23/2018 SUBJECTIVE: The patient is complaining of a higher heart rate than usual. OBJECTIVE: VITAL SIGNS: On exam, his temperature 98.8, pulse 115, O2 saturation 95% on room air, and blood pressure 120/56. A 24-hour intake 1944 and output 1400. HEENT: Unremarkable. NECK: Without adenopathy, JVD, or bruits. CARDIAC: S1 and S2. Tachycardic. LUNGS: Clear. ABDOMEN: Soft and nontender. EXTREMITIES: No edema. LABORATORY DATA: His hematocrit is 22.7, hemoglobin 7.8, white blood cell count 12.9, and platelet count 98. Sodium 136, potassium 4.3, chloride 105, CO2 of 25, BUN 12, creatinine 0.8, and glucose 119. ASSESSMENT: 1. Precipitous drop in hematocrit with increased heart rate in the face of recent abdominal surgery. 2. Postoperative hypotension, which seems to be better. 3. Relatively normal echocardiogram. PLAN: Given the drop of his H and H, I will go ahead and get a CT of the abdomen just to rule out peritoneal bleeding. Further disposition to follow. We will monitor H and H. Job ID: [id number]
[2018-02-23] MEDS: Famotidine 20 MG TAB PO SCH ×2 (13:08→21:07)
[2018-02-23] MEDS: Famotidine/PF 20 mg/2ml Vial SLOW IVP SCH ×2 (13:08→21:16)
--- NOTE | 2018-02-23 14:30 | CT ---
CT ABDOMEN WITH CONTRAST CT PELVIS WITH CONTRAST: DATE: 02/23/18 HISTORY: 47-year-old male status post laparoscopic cholecystectomy with anemia. Evaluate for intra-abdominal h emorrhage. COMPARISON: None available. TECHNIQUE: IV injection of iodinated contrast media: 100 mL Isovue-370. Oral contrast media: PO Isovue. FINDINGS: There is a small right pleural effusion and a tiny left pleural effusion. There are air space densiti es in the adjacent portions of the posterior bases of bilateral lower lobes, presumably representing atelectasis, although pneumonia is difficult to exclude. There is duplicated left renal collecting sy stem. There is double left ureter throughout its proximal and mid portions. There is probable a singl e distal left ureter. Urinary bladder is distended. It has thin, normal carter. There is mild right hy dronephrosis, mild left hydroureter, and mild to moderate left hydronephrosis. Left renal upper pole parenchymal cyst. There is a moderate amount of high density free fluid consistent with hemorrhage, s urrounding the liver, especially in Morison's pouch, contiguous with gallbladder fossa. The density i s approximately 65 Hounsfield units. There is moderate density fluid, also consistent with blood (den sity 35 HU) around the spleen and tracking along the left lateral abdominal cavity from the left uppe r quadrant down to the pelvic inlet, adjacent to small bowel loops and anterior to the collapsed desc ending colon. No free fluid within the dependent portion of the pelvic cavity proper. Abdominal aorta , right kidney, pancreas, adrenals, and liver are normal. There is no splenomegaly. There are is a estrada btle finding of mild irregularity of the superior aspect of the spleen medially. No small bowel dilat ion. Scattered numerous tiny and small foci of free intraperitoneal air in the nondependent portions of the abdominal cavity and anterior to the urinary bladder indicates recent surgery. IMPRESSION: 1. Moderate volume of hemoperitoneum. 2. The most dense and largest hematoma collection is in Morison's pouch and in the gallbladder fossa , and therefore this is probably the source of the hemorrhage. 3. Mild irregularity of the superior aspects of the spleen. This may or may not represent a small sp lenic laceration. 4. Bilateral mild hydronephrosis, left greater than right, due to very distended urinary bladder. 5. Duplicated left renal collecting system. CODE Trixie BORGES POS: [facility]
--- NOTE | 2018-02-23 14:52 | PDOC.PN ---
- Subjective Encounter Start Date: 02/23/18 Encounter Start Time: 14:50 Pt seen for followup re: acute blood loss anemia. Reports palpitations. Denies chest pain. - Objective MAR Reviewed: Yes Vital Signs & Weight: Vital Signs (12 hours) Temp Pulse Resp BP BP Pulse Ox 02/23/18 11:03 98.8 F 105 H 18 137/66 93 L 02/23/18 07:47 95 02/23/18 07:26 98.8 F 88 15 120/56 L 95 02/23/18 04:55 81 20 108/56 L 97 02/23/18 04:04 99.0 F 90 18 131/61 97 Weight Weight 239 lb 3.2 oz I&O: 02/22/18 02/23/18 02/24/18 06:59 06:59 06:59 Intake Total 1162 1944 Output Total 615 1400 Balance 547 544 Result Diagrams: 02/23/18 03:46 02/23/18 03:46 EKG Reviewed by me: Yes (tele: sinus tachycardia) Phys Exam - Physical Examination Obese HEENT: moist MMs conjunctival pallor Neck: supple Respiratory: clear to auscultation bilateral S1, S2, tachy Gastrointestinal: soft Neurological: moves all 4 limbs Psychiatric: normal affect Dx/Plan (1) Acute blood loss anemia Code(s): D62 - ACUTE POSTHEMORRHAGIC ANEMIA Status: Acute Comment: hemoglobin dropped since surgery, CT abdo / pelvis showing bleed. Monitor H/H. Pt has sinus tachycardia, monitor on telemetry. (2) Symptomatic anemia Code(s): D64.9 - ANEMIA, UNSPECIFIED Status: Acute (3) Cholelithiasis Code(s): K80.20 - CALCULUS OF GALLBLADDER W/O CHOLECYSTITIS W/O OBSTRUCTION Status: Acute Comment: s/p cholecystectomy (4) Orthostatic hypotension Code(s): I95.1 - ORTHOSTATIC HYPOTENSION Status: Resolved - Plan * . Review of Systems - Review of Systems Cardiovascular: palpitations. negative: chest pain, orthopnea, paroxysmal nocturnal dyspnea, edema, light headedness - Medications/Allergies Allergies/Adverse Reactions: Allergies Allergy/AdvReac Type Severity Reaction Status Date / Time No Known Drug Allergies Allergy Verified 02/20/18 08:29 Medications: Current Medications Acetaminophen (Tylenol) 650 mg PO Q4H PRN PRN Reason: Headache/Fever Or Mild Pain Last Admin: 02/23/18 13:10 Dose: 650 mg Al Hydroxide/Mg Hydroxide (Maalox) 15 ml PO Q6H PRN PRN Reason: Dyspepsia Albuterol/Ipratropium (Duoneb) 3 ml NEB Q4H PRN PRN Reason: Wheezing Calcium Carbonate (Tums) 1,000 mg PO Q4H PRN PRN Reason: Dyspepsia Dextrose/Water (Dextrose 50%) 25 gm SLOW IVP PRN PRN PRN Reason: Hypoglycemia Famotidine (Pepcid) 20 mg PO Q12HR [facility] Last Admin: 02/23/18 13:08 Dose: Not Given Famotidine (Pepcid) 20 mg SLOW IVP Q12HR [facility] Last Admin: 02/23/18 13:08 Dose: Not Given Glucagon (Glucagon) 1 mg IM PRN PRN PRN Reason: Hypoglycemia Dextrose/Water (D5w) 1,000 mls @ 0 mls/hr IV .Q0M PRN PRN Reason: Hypoglycemia Sodium Chloride (Normal Saline 0.9%) 1,000 mls @ 120 mls/hr IV .Q8H20M [facility] Last Admin: 02/23/18 04:54 Dose: 1,000 mls Morphine Sulfate (Morphine) 2 mg SLOW IVP Q2H PRN PRN Reason: Mild-Moderate Pain (1-5) Morphine Sulfate (Morphine) 4 mg SLOW IVP Q2H PRN PRN Reason: Moderate to Severe Pain (6-10) Ondansetron HCl (Zofran) 4 mg IVP Q6H PRN PRN Reason: Nausea/Vomiting Promethazine HCl (Phenergan) 12.5 mg IM Q4H PRN PRN Reason: Nausea/Vomiting
[2018-02-23 15:11] LABS: Hemoglobin 7.9 g/dL (14.0-18.0)
[2018-02-23] MEDS ORDERED: Iopamidol 370 76% 100 ML VIAL ONE (16:24)
[2018-02-23] MEDS ORDERED: Prenatal Vitamin 1 TAB PO SCH ×2 (18:00)
[2018-02-24] MEDS: Sodium Chloride 0.9% 1,000 ML IV SCH (02:13)
[2018-02-24] MEDS: Acetaminophen 325 MG TAB PO PRN ×3 (05:43→21:12)
[2018-02-24 06:52] LABS: Hemoglobin 6.4 g/dL (14.0-18.0); Mean Corpuscular HGB CONC 35.2 g/dL (32.0-36.0); Mean Corpuscular Hemoglobin 34.2 pg (27.0-31.0); Mean Corpuscular Volume 96.9 fL (78.0-98.0); Platelet Count 99 thou/uL (130-400); RBC Distribution Width 11.7 % (11.5-14.5); Red Blood Cell (RBC) Count 1.87 mill/uL (4.70-6.10); White Blood Cell (WBC) Count 8.6 thou/uL (4.8-10.8)
[2018-02-24 06:53] LABS: #Lymphocytes 2.1 thou/uL (1.20-3.40); #Monocytes 0.8 thou/uL (0.11-0.59); #Neutrophils 5.7 thou/uL (1.40-6.50); %Basophils 0.2 % (0.0-1.0); %Eosinophils 0.2 % (0.0-10.0); %Lymphocytes 24.4 % (21.0-51.0); %Monocytes 9.5 % (0.0-10.0); %Neutrophils 65.7 % (42.0-75.0)
--- NOTE | 2018-02-24 08:02 | CON ---
DATE OF CONSULTATION: 02/22/2018 REASON FOR CONSULTATION: Syncopal episode. HISTORY OF PRESENT ILLNESS: Mr. Chaudhry is a 47-year-old male, who underwent laparoscopic cholecystectomy yesterday. This was intended to be an outpatient surgery. Upon getting up to go home, he became syncopal, he dropped his pulse into the 30s. He was subsequently admitted to the [facility] [place]. He continued to have problems overnight with syncopal feelings when he tries to sit up. He has no previous history of syncopal spells. He has had some cardiac evaluation by Dr. Medina in the past, has 1-vessel disease with myocardial bridge. He was started on beta-marni for that. His last dose of beta-marni was yesterday morning. PAST MEDICAL HISTORY: 1. Hypertension. 2. Hyperlipidemia. 3. Coronary artery disease. PAST SURGICAL HISTORY: Cholecystectomy last night. FAMILY MEDICAL HISTORY: Unremarkable. SOCIAL HISTORY: Does not drink. Does not use illicit drugs. Does not smoke. 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 MEDICATIONS: Medications prior to admission include; 1. Metoprolol. 2. Cetirizine. 3. Crestor. 4. Aspirin. 5. Vitamin D3. 6. Olmesartan/hydrochlorothiazide. PHYSICAL EXAMINATION: VITAL SIGNS: Temperature is 99.3, pulse 85, respirations 22, O2 saturation 96%, and blood pressure 126/67. GENERAL: He is awake. Does not appear in any distress, but he is reluctant to sit up. HEENT: Unremarkable. NECK: No JVD. No bruits. LUNGS: Clear. CARDIAC: S1 and S2, tachycardiac, without audible murmur. ABDOMEN: Distended, tympanic, but not tender. EXTREMITIES: No edema. LABORATORY DATA: Sodium 136, potassium 4.1, chloride 106, CO2 of 23, BUN 12, creatinine 0.8, and glucose 172. Albumin 3.2. White blood cell count 12, hematocrit 29.1, and platelet count 111. Random cortisol level is 13.4. Chest x-ray showed diaphragmatic elevation bilaterally with some gas in the abdomen. ASSESSMENT: 1. Syncopal spell postsurgery. 2. Perhaps an inappropriately low cortisol. 3. History of 1-vessel coronary artery disease. PLAN: The syncopal symptom is probably just reflexive from gaseous distention in the abdomen. We will go ahead and do ACTH stimulation test just to make sure, he is not adrenally insufficient. I will get an echocardiogram to make sure he does not have hypertrophic cardiomyopathy or other cardiac issue. We may need to get Dr. Medina involved. The patient slowly needs to try to get up today and see how he does. He will be watched on Monitored Unit for the time being. Job ID: [id number]
[2018-02-24] MEDS: Prenatal Vitamin 1 TAB PO SCH (10:01)
[2018-02-24] MEDS: Famotidine/PF 20 mg/2ml Vial SLOW IVP SCH ×2 (10:03→21:07)
[2018-02-24] MEDS ORDERED: traMADol HCl 50 MG TAB PO PRN (10:54)
[2018-02-24] MEDS ORDERED: HYDROcodone/Acetaminophen 10/325 mg Tablet PO PRN (10:54)
[2018-02-24] MEDS: Famotidine 20 MG TAB PO SCH ×3 (11:06→21:07)
--- NOTE | 2018-02-24 14:59 | PDOC.PN ---
- Subjective Encounter Start Date: 02/24/18 Encounter Start Time: 11:00 Pt seen for followup re: anemia of acute blood loss. Feels better. - Objective MAR Reviewed: Yes Vital Signs & Weight: Vital Signs (12 hours) Temp Pulse Pulse Resp BP BP Pulse Ox 02/24/18 13:53 98.7 F 84 18 132/70 98 02/24/18 11:16 98.3 F 81 18 150/73 H 100 02/24/18 07:27 98.7 F 92 20 137/72 95 02/24/18 04:00 98.8 F 90 16 116/68 98 Weight Weight 246 lb I&O: 02/23/18 02/24/18 02/25/18 06:59 06:59 06:59 Intake Total 1944 0 Output Total 1400 Balance 544 0 Result Diagrams: 02/24/18 05:37 02/23/18 03:46 Additional Labs: Labs reviewed by me Phys Exam - Physical Examination Constitutional: NAD HEENT: moist MMs pallor Neck: supple Respiratory: clear to auscultation bilateral Cardiovascular: RRR Neurological: moves all 4 limbs Psychiatric: normal affect Dx/Plan (1) Acute blood loss anemia Code(s): D62 - ACUTE POSTHEMORRHAGIC ANEMIA Status: Acute Comment: pt's hemoglobin dropped further to 6.4. Discussed with patient and , recommended blood transfusion. (2) Symptomatic anemia Code(s): D64.9 - ANEMIA, UNSPECIFIED Status: Acute Comment: pt to receive pRBC transfusion (3) Cholelithiasis Code(s): K80.20 - CALCULUS OF GALLBLADDER W/O CHOLECYSTITIS W/O OBSTRUCTION Status: Acute Comment: s/p cholecystectomy (4) Orthostatic hypotension Code(s): I95.1 - ORTHOSTATIC HYPOTENSION Status: Resolved - Plan * . Review of Systems - Review of Systems Cardiovascular: negative: chest pain, palpitations, orthopnea, paroxysmal nocturnal dyspnea, edema, light headedness Gastrointestinal: negative: Nausea, Vomiting, Abdominal Pain, Diarrhea, Constipation, Melena, Hematochezia - Medications/Allergies Allergies/Adverse Reactions: Allergies Allergy/AdvReac Type Severity Reaction Status Date / Time No Known Drug Allergies Allergy Verified 02/20/18 08:29 Medications: Current Medications Acetaminophen (Tylenol) 650 mg PO Q4H PRN PRN Reason: Headache/Fever Or Mild Pain Last Admin: 02/24/18 12:35 Dose: 650 mg Hydrocodone Bitart/Acetaminophen ([place] 10/325) 1 tab PO Q4H PRN PRN Reason: Pain Al Hydroxide/Mg Hydroxide (Maalox) 15 ml PO Q6H PRN PRN Reason: Dyspepsia Albuterol/Ipratropium (Duoneb) 3 ml NEB Q4H PRN PRN Reason: Wheezing Calcium Carbonate (Tums) 1,000 mg PO Q4H PRN PRN Reason: Dyspepsia Dextrose/Water (Dextrose 50%) 25 gm SLOW IVP PRN PRN PRN Reason: Hypoglycemia Famotidine (Pepcid) 20 mg SLOW IVP Q12HR [facility] Last Admin: 02/24/18 10:03 Dose: Not Given Famotidine (Pepcid) 20 mg PO Q12HR [facility] Last Admin: 02/24/18 11:06 Dose: Not Given Glucagon (Glucagon) 1 mg IM PRN PRN PRN Reason: Hypoglycemia Dextrose/Water (D5w) 1,000 mls @ 0 mls/hr IV .Q0M PRN PRN Reason: Hypoglycemia Morphine Sulfate (Morphine) 2 mg SLOW IVP Q2H PRN PRN Reason: Mild-Moderate Pain (1-5) Morphine Sulfate (Morphine) 4 mg SLOW IVP Q2H PRN PRN Reason: Moderate to Severe Pain (6-10) Ondansetron HCl (Zofran) 4 mg IVP Q6H PRN PRN Reason: Nausea/Vomiting Multivit/Folic Acid/Iron ( Vitamin) 1 tab PO DAILY [facility] Last Admin: 02/24/18 10:01 Dose: 1 tab Promethazine HCl (Phenergan) 12.5 mg IM Q4H PRN PRN Reason: Nausea/Vomiting Sodium Chloride (Flush - Normal Saline) 10 ml IVF PRN PRN PRN Reason: Saline Flush Tramadol HCl (Ultram) 50 mg PO Q4H PRN PRN Reason: Pain
[2018-02-25] MEDS: Acetaminophen 325 MG TAB PO PRN (04:51)
[2018-02-25 06:34] LABS: #Eosinphils 0.1 thou/uL (0.0-0.7); #Lymphocytes 1.9 thou/uL (1.20-3.40); #Monocytes 0.7 thou/uL (0.11-0.59); #Neutrophils 5.3 thou/uL (1.40-6.50); %Basophils 0.4 % (0.0-1.0); %Eosinophils 0.8 % (0.0-10.0); %Neutrophils 65.9 % (42.0-75.0); Hemoglobin 7.9 g/dL (14.0-18.0); Mean Corpuscular HGB CONC 33.9 g/dL (32.0-36.0); Mean Corpuscular Hemoglobin 32.7 pg (27.0-31.0); Mean Corpuscular Volume 96.5 fL (78.0-98.0); Mean Platelet Volume 8.5 fL (7.4-10.4); Platelet Count 106 thou/uL (130-400); RBC Distribution Width 12.9 % (11.5-14.5); Red Blood Cell (RBC) Count 2.42 mill/uL (4.70-6.10); White Blood Cell (WBC) Count 8.1 thou/uL (4.8-10.8)
--- NOTE | 2018-02-25 07:49 | PRG ---
DATE OF SERVICE: 02/24/2018 SUBJECTIVE: Mr. Chaudhry feels better today. Unfortunately, his hemoglobin has fallen to 6.4. He is very reluctant to take a blood transfusion. OBJECTIVE: VITAL SIGNS: His temperature 98.7, pulse 92, respirations 20, O2 saturation 95% on room air, and blood pressure 137/72. HEENT: Unremarkable. NECK: No JVD. LUNGS: Clear. CARDIAC: S1 and S2. Regular. ABDOMEN: Soft, nontender to deep palpation. EXTREMITIES: No edema. LABORATORY DATA: White blood cell count 8.6, hemoglobin 6.4, hematocrit 18.1, and platelet count 99. His CT yesterday demonstrated a moderate volume of hemoperitoneum, most dense collection being in Morison's pouch and in the gallbladder fossa. ASSESSMENT: 1. Anemia due to blood loss. 2. Status post cholecystectomy. PLAN: Communicated with Dr. Mauro. He will see the patient. I told the patient, he probably needed a blood transfusion, but he is very reluctant to proceed with that. He wanted to first speak with Dr. Mauro. Currently, the patient is hemodynamically stable, so I do not think blood administration is an urgent issue. Job ID: [id number]
[2018-02-25 08:29] VITALS: BP 134/78; TEMP 98.5
[2018-02-25] MEDS: Famotidine/PF 20 mg/2ml Vial SLOW IVP SCH (09:31)
[2018-02-25] MEDS: Prenatal Vitamin 1 TAB PO SCH (09:31)
[2018-02-25] MEDS: Famotidine 20 MG TAB PO SCH (09:32)
--- NOTE | 2018-02-25 10:22 | PRG ---
DATE OF SERVICE: 02/25/2018 SUBJECTIVE: The patient is doing better today. He did receive blood transfusion yesterday. OBJECTIVE: VITAL SIGNS: Temperature 98.5, pulse 80, respiration 18, O2 sat 100% on room air, and blood pressure 134/78. HEENT: Unremarkable. NECK: No adenopathy or JVD. LUNGS: Clear. CARDIAC: S1 and S2, regular. ABDOMEN: Soft. EXTREMITIES: No edema. LABORATORY DATA: White blood cell count 8.1, hematocrit 23.4, and platelet count 106. ASSESSMENT: Anemia post laparoscopic cholecystectomy. PLAN: H and H are now stable. I think that he could probably be discharged. No further Pulmonary recommendations, we will sign off. Job ID: [id number]
--- NOTE | 2018-02-25 16:27 | DIS ---
DATE OF ADMISSION: 02/24/2018 DATE OF DISCHARGE: 02/25/2018 ADMITTING DIAGNOSES: 1. Symptomatic gallstones. 2. Hemoperitoneum. DISCHARGE DIAGNOSES: 1. Symptomatic gallstones. 2. Hemoperitoneum. 3. Hypertension. PROCEDURES: Laparoscopic cholecystectomy by Dr. Mauro, complicated by postop intraabdominal bleeding, with blood transfusion. CONDITION ON DISCHARGE: Improved. STAFF: Dr. Mauro. HOSPITAL COURSE: The patient immediately postop was having vasovagal episodes with bradycardia and hypotension that would resolve when he would lay down. His initial hemoglobin postop had not dropped nor had it the next day after surgery. He was admitted for observation, continued monitoring of hemoglobin, finally it did start to drop, and on 02/24, he was found to have a hemoglobin that was less than 7. He was transfused 2 units of blood. The patient was never hemodynamically unstable. On the morning of 02/25, the patient's hemoglobin is back up to 7.9. He feels good. He is walking without dizziness. Tolerating regular food. He had a bowel movement. He is being discharged home. He will follow up with me in 2 weeks. Job ID: [id number]
== END 2018-02-25 13:30 | disposition home or self-care (01) | DRG 907 ==
LOC: SDC 10:31 → IMCU/EMU 21:23 → UNDODISOB 22:25 → SURG A 02-23 17:15 → OBSVTOIN 02-24 16:27
PROVIDERS: ADMIT Surgery; ATTEND Surgery
PROC: 0FT44ZZ Resection of Gallbladder, Percutaneous Endoscopic Approach (ICD-10-PCS; principal; 2018-02-21)
PROC: BF121ZZ Fluoroscopy of Gallbladder using Low Osmolar Contrast (ICD-10-PCS; 2018-02-21)
PROC: 30233N1 Transfusion of Nonautologous Red Blood Cells into Peripheral Vein, Percutaneous Approach (ICD-10-PCS; 2018-02-24)
DX: K91.841 Postprocedural hemorrhage of a digestive system organ or structure following other procedure (principal); K66.1 Hemoperitoneum; D62 Acute posthemorrhagic anemia; K80.20 Calculus of gallbladder without cholecystitis without obstruction; I10 Essential (primary) hypertension; E78.5 Hyperlipidemia, unspecified; I25.10 Atherosclerotic heart disease of native coronary artery without angina pectoris; I95.1 Orthostatic hypotension
CPT/HCPCS: 36415; 36430; 47532; 71045; 74018; 74177; 80048; 80053; 80076; 80400; 82533; 84484; 85014; 85018; 85025; 86850; 86900; 86901; 88304; 93005; 93010; 93306; 96374; J0834; J1100; J1885; J2001; J2270; J2405; J2704; J3010; P9016; Q9961

== ENCOUNTER 2018-03-19 21:42 | Emergency (ER) | payer BC ==
[~2018-03-19 21:42] MED LIST: Iopamidol 370 76% 100 ML VIAL ONE
[2018-03-19] MEDS ORDERED: Morphine 4 MG/ML VIAL ONE (22:09)
[2018-03-19] MEDS ORDERED: Ondansetron PF 4 MG/2 ML Vial ONE (22:10)
[2018-03-19] MEDS ORDERED: Nitroglycerin 0.4 MG TAB (25 Tab Bottle) ONE (22:23)
[2018-03-19 22:27] LABS: #Basophils 0.1 thou/uL (0.0-0.2); #Lymphocytes 0.6 thou/uL (1.20-3.40); #Monocytes 0.4 thou/uL (0.11-0.59); #Neutrophils 7.9 thou/uL (1.40-6.50); %Basophils 0.6 % (0.0-1.0); %Lymphocytes 7.1 % (21.0-51.0); %Monocytes 4.7 % (0.0-10.0); %Neutrophils 87.6 % (42.0-75.0); Hemoglobin 14.2 g/dL (14.0-18.0); Mean Corpuscular HGB CONC 32.8 g/dL (32.0-36.0); Mean Corpuscular Hemoglobin 32.4 pg (27.0-31.0); Mean Corpuscular Volume 98.7 fL (78.0-98.0); Mean Platelet Volume 8.3 fL (7.4-10.4); Platelet Count 138 thou/uL (130-400); RBC Distribution Width 12.9 % (11.5-14.5); Red Blood Cell (RBC) Count 4.37 mill/uL (4.70-6.10)
[2018-03-19 23:23] LABS: ALT (SGPT) 210 U/L (8-55); AST (SGOT) 318 U/L (5-34); Albumin 4.4 g/dL (3.5-5.0); Alkaline Phosphatase 59 U/L (40-150); Anion Gap 16 mmol/L (10-20); BUN (Urea Nitrogen) 11 mg/dL (8.9-20.6); CK (CPK) 145 U/L (30-200); Calc. Creatinine Clearance 0 mL/min (70-130); Calcium 9.7 mg/dL (7.8-10.44); Carbon Dioxide 24 mmol/L (22-29); Chloride 102 mmol/L (98-107); Estimated GFR-MDRD 90; Globulin 2.7 g/dL (2.4-3.5); Glucose 163 mg/dL (70-105); Lipase 72 U/L (8-78); Potassium 3.4 mmol/L (3.5-5.1); Protein, Total 7.1 g/dL (6.0-8.3); Sodium 139 mmol/L (136-145)
[2018-03-19] MEDS ORDERED: Ketorolac Tromethamine 30 MG/ML VIAL ONE (23:38)
--- NOTE | 2018-03-20 09:31 | CT ---
PRELIMINARY REPORT/[facility]/EMERGENTY AFTER-HOURS PROCEDURE CT Abdomen and Pelvis With Contrast EXAM DATE/TIME: 03/19/2018 11:41 PM CLINICAL HISTORY: 47 years old, male; Pain and signs and symptoms; Nausea; Abdominal pain; Epigastric; Prior surgery; S urgery date: <1 month; Surgery type: Lap saurav 02/21; Patient HX: S/P merle 02/21, still C/O epigastri c pain, elevated ast, alt TECHNIQUE: Axial computed tomography images of the abdomen and pelvis with intravenous contrast. All CT scans at this facility use at least one of these dose optimization techniques: automated exposure control; mA and/or kV adjustment per patient size (includes targeted exams where dose is matched to clinical ind ication); or iterative reconstruction. Coronal reformatted images were created and reviewed. CONTRAST: 95 ml of [id number] administered intravenously. COMPARISON: No relevant prior studies available. FINDINGS: Lower thorax: No acute findings. ABDOMEN: Liver: Normal. No mass. Gallbladder and bile ducts: Cholecystectomy clips and trace nonloculated fluid present in the gallbla dder fossa, consistent with reported history of recent cholecystectomy. No biliary ductal dilatation. Pancreas: Normal. No ductal dilation. Spleen: Normal. No splenomegaly. Adrenals: Normal. No mass. Kidneys and ureters: Small left renal cyst. Cortical scarring of the left kidney. Kidneys otherwise u nremarkable. Stomach and bowel: Normal. No obstruction. No mucosal thickening. Appendix: Normal appendix. PELVIS: Bladder: Unremarkable as visualized. Reproductive: Unremarkable as visualized. ABDOMEN and PELVIS: Intraperitoneal space: Small volume homogeneously hyperdense (approximately 50 Hounsfield units) free fluid in the paracolic gutters and dependent pelvis, most compatible with hemoperitoneum. No pneumoperitoneum or abscess. Bones/joints: No acute fracture. No dislocation. Soft tissues: Unremarkable. Vasculature: Normal. No abdominal aortic aneurysm. Lymph nodes: Normal. No enlarged lymph nodes. IMPRESSION: Small volume homogeneously hyperdense (approximately 50 Hounsfield units) free fluid in the paracolic gutters and dependent pelvis, most compatible with hemoperitoneum. Thank you for allowing us to participate in the care of your patient. Dictated and Authenticated by: Truman Cueto MD 03/20/2018 12:51 AM Central Time ([place] & [place]) FINAL REPORT CT ABDOMEN AND PELVIS WITH CONTRAST: Date: 03/19/18 HISTORY: Abdominal pain. COMPARISON: CT dated 02/23/18. FINDINGS: Lung bases are clear. No pneumothorax. No pericardial effusion. Prior cholecystectomy. The pneumohemoperitoneum has predominantly resolved. There is some trace fluid versus scarring along the right paracolic gutter. There is very small volume hemorrhage remaining al sathish the right paracolic gutter. Duplicated left renal collecting system. There is some trace hemoperi toneum along the left hemiabdomen. All findings are improving from the 02/23/18 examination. IMPRESSION: Findings and impression are concordant with the preliminary report by Dania. POS: RAJESH
== END 2018-03-20 01:30 | disposition home or self-care (01) ==
LOC: SCSER 21:42
DX: R10.10 Upper abdominal pain, unspecified (principal); R94.31 Abnormal electrocardiogram [ECG] [EKG]; E78.5 Hyperlipidemia, unspecified; I10 Essential (primary) hypertension; Z79.899 Other long term (current) drug therapy; Z79.82 Long term (current) use of aspirin
CPT/HCPCS: 74177; 80053; 82550; 83690; 84484; 85025; 93005; J1885; J2270; J2405

== ENCOUNTER 2018-03-20 16:56 | Inpatient (IN) | payer BC ==
[2018-03-20 17:43] VITALS: BMI 29.9
[2018-03-20] MEDS ORDERED: traMADol HCl 50 MG TAB PO PRN (19:53)
[2018-03-20] MEDS ORDERED: Ketorolac Tromethamine 30 MG/ML VIAL IVP PRN (21:12)
[2018-03-20] MEDS ORDERED: Acetaminophen 650 MG Suppository PR PRN (23:45)
[2018-03-20] MEDS ORDERED: Ondansetron ODT 4 MG TAB PO PRN (23:45)
[2018-03-20] MEDS ORDERED: Ondansetron PF 4 MG/2 ML Vial IVP PRN (23:45)
[2018-03-20] MEDS ORDERED: Acetaminophen 325 MG TAB PO PRN (23:45)
[2018-03-21] MEDS: Sodium Chloride 0.9% 1,000 ML IV SCH ×3 (00:40→19:00)
[2018-03-21 08:34] LABS: #Eosinphils 0.1 thou/uL (0.0-0.7); #Lymphocytes 1.2 thou/uL (1.20-3.40); #Monocytes 0.7 thou/uL (0.11-0.59); #Neutrophils 3.5 thou/uL (1.40-6.50); %Basophils 0.8 % (0.0-1.0); %Eosinophils 1.4 % (0.0-10.0); %Monocytes 11.9 % (0.0-10.0); %Neutrophils 63.9 % (42.0-75.0); Hemoglobin 12.9 g/dL (14.0-18.0); Mean Corpuscular HGB CONC 32.2 g/dL (32.0-36.0); Mean Corpuscular Hemoglobin 32.3 pg (27.0-31.0); Mean Platelet Volume 8.7 fL (7.4-10.4); Platelet Count 133 thou/uL (130-400); RBC Distribution Width 13.2 % (11.5-14.5); White Blood Cell (WBC) Count 5.5 thou/uL (4.8-10.8)
[2018-03-21 08:50] LABS: Anion Gap 12 mmol/L (10-20); BUN (Urea Nitrogen) 5 mg/dL (8.9-20.6); Calc. Creatinine Clearance 157 mL/min (70-130); Calcium 9.3 mg/dL (7.8-10.44); Carbon Dioxide 28 mmol/L (22-29); Chloride 107 mmol/L (98-107); Estimated GFR-MDRD Greater than 90; Glucose 94 mg/dL (70-105); Potassium 3.9 mmol/L (3.5-5.1); Sodium 143 mmol/L (136-145)
--- NOTE | 2018-03-21 09:29 | PDOC.GSPN ---
Surgery Progress Note: Subj - Subjective Narrative: Not able to void. Minimal walking so far. No nausea Surgery Progress Note: Obj - Vital signs Vital signs: Vital Signs - Most Recent Temp Pulse Resp BP Pulse Ox 98.1 F 68 18 111/70 94 L 03/21/18 07:32 03/21/18 07:32 03/21/18 07:32 03/21/18 07:32 03/21/18 07:32 - Physical Exam General: no distress Respiratory: clear to auscultation Abdomen: soft, non tender Wound: healing well Surgery Progress Note: Results - Labs Result Diagrams: 03/21/18 08:13 03/21/18 08:13 Lab results: Laboratory Results - last 24 hr 03/21/18 03/21/18 08:13 08:13 WBC 5.5 RBC 4.00 L Hgb 12.9 L Hct 40.1 L MCV 100.0 H MCH 32.3 H MCHC 32.2 RDW 13.2 Plt Count 133 MPV 8.7 Neutrophils % 63.9 Lymphocytes % 22.0 Monocytes % 11.9 H Eosinophils % 1.4 Basophils % 0.8 Neutrophils # 3.5 Lymphocytes # 1.2 Monocytes # 0.7 H Eosinophils # 0.1 Basophils # 0.0 Sodium 143 Potassium 3.9 Chloride 107 Carbon Dioxide 28 Anion Gap 12 BUN 5 L Creatinine 0.85 Estimated GFR (MDRD) Greater than 90 Glucose 94 Calcium 9.3 Surgery Progress Note: A/P - Problem (1) Morbid obesity Current Visit: Yes Code(s): E66.01 - MORBID (SEVERE) OBESITY DUE TO EXCESS CALORIES Status: Acute - Plan Plan: POD 1 GAstric Bypass -Needs to walk in hallway -I&O cath again if not able to void after gettting up -Home later today if able to void and if austin liquids
[2018-03-21 11:03] LABS: ALT (SGPT) 473 U/L (8-55); AST (SGOT) 286 U/L (5-34); Albumin 3.9 g/dL (3.5-5.0); Alkaline Phosphatase 65 U/L (40-150); Bilirubin, Direct 4.4 mg/dL (0.1-0.3); Bilirubin, Total 6.5 mg/dL (0.2-1.2); Protein, Total 5.9 g/dL (6.0-8.3)
--- NOTE | 2018-03-21 11:28 | ULT ---
RIGHT UPPER QUADRANT ULTRASOUND: HISTORY: Elevated LFTs. FINDINGS: The left lobe of the liver and pancreas is not visualized due to overlying bowel gas. The right lobe of the liver is normal. The patient is post cholecystectomy. The common duct measures 8 mm in diam eter. No right-sided hydronephrosis is seen. No free fluid is identified in the Cohen pouch. IMPRESSION: Limited examination due to overlying bowel gas. POS: OFF
--- NOTE | 2018-03-21 14:09 | HP ---
PRIMARY CARE PHYSICIAN: Dr. Jn Kearney. CHIEF COMPLAINT: Abdominal pain. HISTORY OF PRESENT ILLNESS: This is a 47-year-old white male with a history of recurrent abdominal pain over the last year, evaluated here few months ago with some ST depression on his EKG at a cardiac evaluation and cardiac catheterization, which showed a congenital myocardial bridge, put on beta blockers given the lack of a heart etiology for his pain. He had an ultrasound done, which showed gallstones, so he did have a cholecystectomy done a month ago. The patient did well postoperatively, but twice had abdominal pain, more to the left side than to the right, but also radiated to the back as previous. It resolved spontaneously the first time, then on Stacia evening after going for a walk, it recurred. It was severe pain 8 to 10/10 with constant aching pain radiating to his mid back. He was evaluated in the emergency room yesterday. He had a CT scan of the abdomen, which was negative except for a little bit of fluid and likely intraperitoneal blood, which is consistent with his previous history of surgery that did have some bleeding afterward. He also had some mild elevation to his liver function tests in bilirubin. The patient had pain medications, morphine and eventually, Toradol and had some improvement of his pain, and he was discharged from the emergency room. He then saw his doctor in his office yesterday, had repeat liver function tests, which showed a bilirubin jumping up to 4.6 and his AST and ALT rising further to 500 and 538. The patient did have the persistent inverted T-waves on his EKG, though his troponin were negative, so he was sent back over to the hospital for direct admission for further evaluation. The patient reports that since coming to the hospital, his pain has resolved completely, and he is asymptomatic this morning. He did have some nausea yesterday when the pain was at its worst, but no vomiting and that has since resolved. He has had a little constipation, but controlled with a stool softener and denies any other symptoms. His back pain has also resolved. PAST MEDICAL HISTORY: 1. Hypertension. 2. Dyslipidemia. 3. Gallstones. 4. 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 PAST SURGICAL HISTORY: Laparoscopic cholecystectomy on February 24, 2018. SOCIAL HISTORY: Rare alcohol use. No history of tobacco use. No drug use. The patient is . FAMILY HISTORY: Father had abdominal aortic aneurysm repair in his 80s, also diabetes mellitus and hypertension. Mother with dementia, hypertension, and hyperlipidemia. His sister has diabetes and had a stroke in her 50s. ALLERGIES: NO KNOWN DRUG ALLERGIES. CURRENT MEDICATIONS: 1. Metoprolol 50 mg twice a day. 2. Olmesartan/hydrochlorothiazide 40/25 mg daily. 3. Cetirizine 10 mg daily as needed. 4. Aspirin 81 mg daily. 5. Crestor 5 mg at night. 6. Vitamin D3 one tablet daily. REVIEW OF SYSTEMS: CONSTITUTIONAL: No fevers, no chills. He has had little bit of weight loss over the last couple of months, as he has been trying eat less fatty foods. He just had a little bit of decreased appetite since the surgery. EYES: No double vision or blurred vision. ENT: No congestion, drainage, or sore throat. CARDIOVASCULAR: No chest pain, no palpitation, or racing heart. PULMONARY: No coughing, wheezing, or shortness of breath. GASTROINTESTINAL: See HPI. GENITOURINARY: No dysuria or hematuria. His urine was a little dark this morning. SKIN: I do not see any rashes or lesions. MUSCULOSKELETAL: No muscle aches or joint pain. NEUROLOGIC: No numbness, tingling, or focal weakness. PSYCHIATRIC: No worsening anxiety or depression, though he is an anxious person at baseline. PHYSICAL EXAMINATION: VITAL SIGNS: Blood pressure 116/69, pulse 63, temperature 98.8, O2 sat 96% on room air, respiration 16. GENERAL: This is a well-developed overweight white male, in no acute distress. HEENT: Pupils are equal, round, and reactive to light. Mild scleral icterus. Oropharynx clear without lesions, erythema, or exudates. NECK: Supple. No lymphadenopathy. No thyroid nodules or enlargement. No JVD. HEART: Regular rate and rhythm. No murmurs, rubs, or gallops. LUNGS: Clear to auscultation bilaterally. No wheezes, crackles, or rhonchi. ABDOMEN: Soft, minimal tenderness to palpation in the epigastric region. No rebound tenderness. No masses. No guarding. Normoactive bowel sounds. No hepatosplenomegaly. EXTREMITIES: No clubbing, cyanosis, or edema. SKIN: Mild yellow tinged, otherwise no rashes or other lesions. NEUROLOGIC: Intact strength in all extremities. No fascial droop. PSYCHIATRIC: Alert and oriented x3. Normal mood and affect. LABORATORY DATA: See HPI. His hemoglobin is stable at 12.9 and a repeat basic metabolic panel is normal in the hospital here. His repeat liver function tests are pending. ASSESSMENT: 1. Recurrent abdominal pain radiating to the back. This may be postoperative related or may be related to a pain that was actually not due to gallstones in the first place, as it seems to have been recurrent even since the surgery. Pain has now resolved completely. He is without symptoms currently. I did discuss his case with Dr. Medina, his a p mechanic. He stated that the cardiac bridge needs to be treated with beta blockers, but it is not the source of his abdominal pain, and given the normal cardiac markers that he does not need further cardiac workup this hospitalization and I am concerned about a possible postoperative complication; however, with the patient, he did have a negative CT scan yesterday. 2. Jaundice with elevated liver function tests concerned for postoperative complication after his cholecystectomy. Uncertain, if this is the source of his pain. However, he is significantly jaundiced now. We will get a right upper quadrant ultrasound and Dr. Mauro has already been consulted and has ordered repeat liver function tests for this morning. The patient is n.p.o. for now. We have also consulted Dr. Haines, in GI to assist with this case. The patient may end up eventually needing MRCP or ERCP to evaluate his biliary tree. 3. Hypertension. Resume the patient's home medications. 4. Dyslipidemia. Resume the patient's home medications. 5. Code status. I did discuss with the patient. He is a full code. Should he be incapacitated, his will be his decision maker, her name is Kaity Chaudhry. Job ID: [id number]
[2018-03-21] MEDS: Rosuvastatin 5 MG TAB PO SCH (21:05)
--- NOTE | 2018-03-22 03:25 | CON ---
DATE OF CONSULTATION: 03/21/2018 REASON FOR CONSULTATION: Elevated liver function tests, abdominal pain. CONSULTING PHYSICIAN: Dr. Fili Meyer. 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 Upon review of the patient's chart, he had increased midepigastric abdominal pain as well as presence of cholelithiasis for which he ultimately underwent a cholecystectomy. However, the cholecystectomy was complicated by significant bleeding in the postoperative period that was ultimately intervened upon any he did well after this particular intervention. He was ultimately discharged to home and was doing well until approximately 48 hours ago when he experienced increased midepigastric/left upper quadrant abdominal pain characterized as an aching/pressure type pain that was constant, that would radiate to the midepigastric and periumbilical region. The pain progressively worsened, ultimately reaching a severity of 8 to 10/10, that ultimately prompted him to come back to his primary care physician for further evaluation. Upon further evaluation, he was noted to have significantly elevated LFTs as well as bilirubin concerning for intraabdominal process and was directly admitted to the hospital for further evaluation. Upon entry into the hospital, the patient was given Toradol for his pain with significant improvement in his abdominal pain and at the current time, denies any abdominal pain except with palpation of his upper abdomen. Along with his abdominal pain that he has been experiencing, he did have some increased nausea without overt emesis but denies any fevers, chills, GI bleeding, dysphagia, odynophagia, or weight loss. REVIEW OF SYSTEMS: A 10-category review of systems was obtained with all responses negative except for the pertinent positives as listed in the HPI. PAST MEDICAL HISTORY: As per HPI. PAST SURGERY HISTORY: Laparoscopic cholecystectomy on February 20, 2018. FAMILY HISTORY: Denies any GI malignancies. SOCIAL HISTORY: Denies any tobacco or illicit drug use with occasional alcohol consumption. OUTPATIENT MEDICATIONS: Reviewed. ALLERGIES: NO KNOWN DRUG ALLERGIES. PHYSICAL EXAMINATION: VITAL SIGNS: Temperature 98.6, pulse 65, blood pressure 119/77, respiratory rate 18, saturating 97% on room air. GENERAL: The patient is lying in bed, in no acute distress. Alert and oriented x4. HEENT: Normocephalic, atraumatic. NECK: Supple. No scleral icterus or JVD noted. CARDIOVASCULAR: Regular rate and rhythm with no discernible murmurs, gallops, or rubs. RESPIRATORY: Clear to auscultation bilaterally with no discernible wheezes or rales. ABDOMEN: Normoactive bowel sounds. Soft, nondistended, tenderness to palpation in the midepigastric, periumbilical and right lower quadrants. EXTREMITIES: No cyanosis, clubbing, or edema. LABORATORY DATA: CBC with a white blood cell count of 5.5, hemoglobin 12.9, hematocrit 40.1, platelets 133. Chemistry with a sodium of 143, potassium 3.9, chloride 107, CO2 of 28, BUN 5, creatinine 0.85, AST 286, ALT 473, alkaline phosphatase 65, total bilirubin 6.5, albumin 3.9. IMAGING DATA: Abdominal ultrasound obtained on March 21, 2018, showed normal right lobe of the liver with surgical change consistent with cholecystectomy. The common bile duct measured 8 mm in diameter with no free fluid identified in Morison's pouch. HIDA scan is pending at this time. ASSESSMENT AND PLAN: The patient is a 47-year-old male with past medical history of hypertension, hyperlipidemia, myocardial bridge, and cholelithiasis status post complicated cholecystectomy, presenting with increased midepigastric abdominal pain and elevated LFTs. Midepigastric abdominal pain/elevated LFTs. The patient is presenting with a recent hospitalization for cholelithiasis and similar midepigastric abdominal pain for which he ultimately underwent cholecystectomy. In the postoperative period, he was complicated by increased bleeding within the biliary system that was intervened upon by the General Surgery service and ultimately discharged to home and was in his usual state of health until approximately 48 to 72 hours ago at which point in time, he experienced increased recurrence of his abdominal pain as well and which prompted his PCP to obtain labs that showed a significantly elevated LFTs with his AST and ALT in the 500 range. Based on those findings, his LFTs are currently downtrending, which may mean that whatever offending insult occurred is now either lessened or resolved as well as evidence in his lack of abdominal pain since he had taken the Toradol yesterday. At this point, the differential could include bile leak, choledocholithiasis with retained stones within the common bile duct, postsurgical complication with liver, more possible pancreatitis (unlikely). RECOMMENDATIONS: 1. We will follow up on the results of the HIDA scan for possible biliary leak versus obstruction to help further guide management. 2. If presence of either a bile leak or obstruction, an ERCP would be indicated for either stent placement or stone extraction respectively. 3. We would continue to trend LFTs daily to ascertain resolution and if continued to be downtrending, we would probably hold on ERCP/intervention at this time. 4. We would consider obtaining a serum lipase for possible pancreatitis contributing to current clinical picture, although pancreatitis usually does not cause a degree of elevation in LFTs seen on his current labs. 5. We will continue to follow. Please call with any questions. Job ID: [id number]
[2018-03-22] MEDS: Sodium Chloride 0.9% 1,000 ML IV SCH ×3 (05:18→21:03)
[2018-03-22 06:53] LABS: #Eosinphils 0.1 thou/uL (0.0-0.7); #Lymphocytes 1.4 thou/uL (1.20-3.40); #Monocytes 0.7 thou/uL (0.11-0.59); #Neutrophils 3.9 thou/uL (1.40-6.50); %Basophils 0.6 % (0.0-1.0); %Eosinophils 1.6 % (0.0-10.0); %Lymphocytes 22.2 % (21.0-51.0); %Neutrophils 64.5 % (42.0-75.0); Hemoglobin 12.5 g/dL (14.0-18.0); Mean Corpuscular Hemoglobin 33.4 pg (27.0-31.0); Mean Platelet Volume 9.2 fL (7.4-10.4); PLT Morphology Comment Appears Decreased; Platelet Count 115 thou/uL (130-400); RBC Distribution Width 13.1 % (11.5-14.5); Red Blood Cell (RBC) Count 3.74 mill/uL (4.70-6.10); White Blood Cell (WBC) Count 6.1 thou/uL (4.8-10.8)
[2018-03-22 06:54] LABS: ALT (SGPT) 355 U/L (8-55); AST (SGOT) 151 U/L (5-34); Albumin 3.5 g/dL (3.5-5.0); Alkaline Phosphatase 60 U/L (40-150); Anion Gap 9 mmol/L (10-20); BUN (Urea Nitrogen) 8 mg/dL (8.9-20.6); Bilirubin, Total 2.8 mg/dL (0.2-1.2); Calc. Creatinine Clearance 169 mL/min (70-130); Calcium 8.8 mg/dL (7.8-10.44); Carbon Dioxide 27 mmol/L (22-29); Chloride 109 mmol/L (98-107); Estimated GFR-MDRD Greater than 90; Globulin 2.2 g/dL (2.4-3.5); Glucose 83 mg/dL (70-105); Lipase 293 U/L (8-78); Potassium 3.4 mmol/L (3.5-5.1); Protein, Total 5.7 g/dL (6.0-8.3); Sodium 142 mmol/L (136-145)
--- NOTE | 2018-03-22 07:28 | PRG ---
DATE OF SERVICE: 03/22/2018 SUBJECTIVE: Mr. Chaudhry is well known to me, re-admitted with epigastric pain and jaundice. Had a history of lap saurav a month ago, complicated by postop abdominal bleed and hematoma, required 2 units of blood at that time. Has a history of chronic mild thrombocytopenia. Now, on after a small dinner non-greasy, had severe epigastric pain. Seen in the emergency room, where a CT scan showed no significant abnormality. His pain improved. He was discharged to home, but pain worsened on the . He saw Dr. Jn Kearney, who admitted him to the hospital. Repeated his LFTs. LFTs are now up, and his bilirubin is 6.5. His pain has resolved. No previous known history of hepatitis, although he has been told he had a "fatty liver" in the past. PHYSICAL EXAMINATION: He is afebrile and his vital signs are stable. His abdomen is soft. His wounds are all well healed. LABORATORY DATA: His bilirubin today is down to 2.8 from 6.5 yesterday. AST and ALT are trending down as well. Alkaline phosphatase has been normal. His lipase is mildly elevated at 293. Ultrasound yesterday showed no abnormality other than common bile duct was 0.[address] scan showed no abnormality. ASSESSMENT: Elevated liver function test a month out from laparoscopic cholecystectomy, could be retained stone, could be some steatohepatitis versus cholestasis. Please note, he did have normal cholangiogram at time of surgery. PLAN: The plan is for HIDA scan today to rule out cystic duct leak versus obstruction, ERCP after if that is positive. Otherwise, I suspect his LFTs will trend down on their own. Job ID: [id number]
--- NOTE | 2018-03-22 10:58 | NM ---
HEPATOBILIARY SCAN: Comparison: None. History: Status post cholecystectomy with increased bilirubin. Evaluate for leak or obstruction. Technique: A hepatobiliary scan was performed after administration of 5.5 mCi Technetium 99M Mebrofen in. FINDINGS: Prompt uptake of the radiopharmaceutical by the liver is seen. No liver lesions are seen. Contrast is seen within the bowel within 10 minutes. There is no evidence of abnormal accumulation of the radiop harmaceutical outside of the liver or bowel to suggest a biliary leak. IMPRESSION: No evidence of biliary leak or biliary obstruction. POS: RAJESH
--- NOTE | 2018-03-22 13:27 | PDOC.PN ---
- Subjective Encounter Start Date: 03/22/18 Encounter Start Time: 13:00 Subjective: Patient denies further abdominal pain since admission. Yellow color -: resolved today. No other complaints. - Objective Resuscitation Status - Order Detail: 03/20/18 23:45 Resuscitation Status Routine Resuscitation Status: FULL: Full Resuscitation MAR Reviewed: Yes Vital Signs & Weight: Vital Signs (12 hours) Temp Pulse Resp BP Pulse Ox 03/22/18 11:05 99.0 F 61 16 121/72 97 03/22/18 08:00 96 03/22/18 07:57 98.2 F 52 L 16 130/68 96 03/22/18 05:01 97.8 F 54 L 16 113/62 96 Weight Weight 233 lb I&O: 03/21/18 03/22/18 03/23/18 06:59 06:59 06:59 Intake Total 573 3860 Balance 573 3860 Result Diagrams: 03/22/18 05:31 03/22/18 05:31 Phys Exam - Physical Examination Constitutional: NAD HEENT: moist MMs, sclera anicteric Respiratory: no wheezing, no rales, no rhonchi Cardiovascular: RRR, no significant murmur Gastrointestinal: soft, non-tender, positive bowel sounds Musculoskeletal: no edema Neurological: non-focal Psychiatric: normal affect, A&O x 3 Dx/Plan (1) Abdominal pain Code(s): R10.9 - UNSPECIFIED ABDOMINAL PAIN Status: Resolved Comment: Uncertain eitiology. Possibly post surgical scar tissue pain from gardening and going on a walk. Other possibility would be passage of a retained stone, though intraoperative cholangiogram was negative. (2) Cholestatic jaundice Code(s): R17 - UNSPECIFIED JAUNDICE Status: Acute Comment: Bilirubin peaked at more than 6 yesterday, now down below 3. Uncertain eitiology. HIDA scan negative and all LFTs improving spontaneously. - Plan cont current plan of care Can d/c home if ok with GI, f/u LFT as outpatient. * . - Discharge Day Encounter end time: 13:30
--- NOTE | 2018-03-22 13:31 | PRG ---
DATE OF SERVICE: 03/22/2018 SUBJECTIVE: Mr. Chaudhry feels fine. He is tolerating a full liquids. He had HIDA scan today, which was normal, shows no cystic duct leak or obstruction. OBJECTIVE: VITAL SIGNS: He is afebrile. His vital signs are stable. ABDOMEN: Soft. His wounds are all well healed. LABORATORY DATA: Bilirubin down to 2.8, AST and ALT are 151 and 355. His alkaline phosphatase is normal at 60. His lipase today was 293. ASSESSMENT: Cholestasis of uncertain etiology, although he states that he has a history of steatohepatitis. The liver tests otherwise are all normal. HIDA scan normal for biliary obstruction. PLAN: Advance diet probably DC today . Job ID: [id number]
[2018-03-22] MEDS: Rosuvastatin 5 MG TAB PO SCH (21:04)
--- NOTE | 2018-03-22 22:03 | MRI ---
ABDOMEN MRI WITHOUT CONTRAST: 03/22/18 HISTORY: Elevated LFTs. Evaluate for choledocholithiasis. Cholecystectomy in January 2018. COMPARISON: Abdomen CT 03/19/18, 02/23/18. TECHNIQUE: MRI of the abdomen is performed without intravenous contrast administration. Multisequential, multipl gary imaging is performed. FINDINGS: There is appropriate signal intensity in the visualized solid organs. There are T2 hyperintensities in the left renal cortex and left renal pelvis compatible with a combin ation of parapelvic and cortical cysts. No evidence of hydronephrosis. 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 Visualized mesentery and alimentary canal are unremarkable. No abnormality in the visualized osseous structures. With regard to the MRCP, there is appropriate T2 signal intensity in the intrahepatic and extrahepati c biliary system. No filling defect. No significant dilatation. IMPRESSION: 1. No MR evidence of choledocholithiasis. 2. Note, correlation made with HIDA scan performed 03/22/18 does demonstrate passage of radiotra cer from the common bile duct into the small bowel loops. POS: SHADI
--- NOTE | 2018-03-22 23:37 | PRG ---
DATE OF SERVICE: 03/22/2018 REASON FOR CONSULTATION: Elevated liver function test, abdominal pain. SUBJECTIVE: The patient did well overnight with no acute events or problems. He states that his abdominal pain is not recurred since it resolved within the last 24 to 48 hours. Currently, he denies any nausea, vomiting, fevers, chills, abdominal pain, GI bleeding, dysphagia, odynophagia, diarrhea, or constipation. He has been able to tolerate a clear liquid diet earlier today as well. PHYSICAL EXAMINATION: VITAL SIGNS: Temperature 98.6, pulse 58, blood pressure 128/74, respiratory rate 18, and saturating 98% on room air. GENERAL: The patient was lying in bed, in no acute distress. Alert and oriented x4. CARDIOVASCULAR: Regular rate and rhythm. RESPIRATORY: Clear to auscultation bilaterally. ABDOMEN: Normoactive bowel sounds. Soft, nondistended, mild tenderness to palpation in the midepigastric region. EXTREMITIES: No cyanosis, clubbing, or edema. LABORATORY DATA: CBC with a white blood cell count of 6.1, hemoglobin 12.5, hematocrit 37.9, and platelets 115. Chemistry with a sodium of 142, potassium 3.4, chloride 109, CO2 of 27, BUN 8, creatinine 0.79, glucose 83. AST 151, ALT 355, alkaline phosphatase 60, and total bilirubin IMAGING DATA: HIDA scan obtained on 03/22/2018 showed no evidence of biliary obstruction or biliary leak. Subsequent MRCP obtained on 03/22/2018 showed no evidence of filling defect or dilation of the common bile duct or intrahepatic tree. ASSESSMENT AND PLAN: The patient is a 47-year-old male with past medical history of hypertension, hyperlipidemia, myocardial bridge, and cholelithiasis, status post complicated cholecystectomy, presenting with increased midepigastric abdominal pain. No elevated LFTs. Midepigastric abdominal pain/elevated LFTs. The patient is presenting with recent hospitalization for cholelithiasis for similar pain as this admission and subsequently underwent cholecystectomy, and the postoperative period was complicated by increased bleeding within the biliary system that was intervened upon successfully. He was ultimately discharged home with recurrence of this midepigastric abdominal pain approximately 2 to 3 weeks later; however, during this admission with more conservative management with just pain control. He has had complete resolution of his abdominal pain despite significantly elevated LFTs. However, over the last 48 hours, his LFTs have continued to downtrend and he has both negative HIDA and MRCP scan showing no evidence of biliary leak, biliary obstruction, or choledocholithiasis. Given his asymptomatic nature at this time and no evidence on imaging of retained stone or stenosis along with down trending LFTs, it would seem that the patient may have had a stone initially and may have passed it or rather this he may be dealing with increased pain secondary to recent complicated cholecystectomy and reabsorption of hematoma. RECOMMENDATIONS: 1. We would continue to trend LFTs daily to ascertain resolution and continue downtrending. 2. Withhold on ERCP at this time given lack of objective evidence of choledocholithiasis. 3. Advance diet as tolerated. We will sign off at this time. Given the patient's asymptomatic nature, downtrending LFTs, and negative imaging for choledocholithiasis, we would recommend follow up in clinic in approximately 2 weeks from now to confirm resolution of his transaminitis. Please call with any additional questions. Job ID: [id number]
[2018-03-23] MEDS: Sodium Chloride 0.9% 1,000 ML IV SCH (06:14)
[2018-03-23 07:56] VITALS: BP 117/72; TEMP 98.3
--- NOTE | 2018-03-23 07:58 | PDOC.PN ---
- Subjective Encounter Start Date: 03/23/18 Encounter Start Time: 08:00 Subjective: Patient reports no more abdominal pain. No N/V. Taking food ok. - Objective Resuscitation Status - Order Detail: 03/20/18 23:45 Resuscitation Status Routine Resuscitation Status: FULL: Full Resuscitation MAR Reviewed: Yes Vital Signs & Weight: Vital Signs (12 hours) Temp Pulse Resp BP BP Pulse Ox 03/23/18 07:55 98.3 F 53 L 96 H 117/72 96 03/23/18 04:00 98.1 F 63 16 122/67 97 03/23/18 00:00 97.3 F L 60 16 117/74 93 L 03/22/18 20:54 98.6 F 58 L 18 128/74 98 03/22/18 20:00 98 Weight Weight 233 lb I&O: 03/22/18 03/23/18 03/24/18 06:59 06:59 06:59 Intake Total 3860 2880 Balance 3860 2880 Result Diagrams: 03/22/18 05:31 03/22/18 05:31 Phys Exam - Physical Examination Constitutional: NAD HEENT: moist MMs Respiratory: no wheezing, no rales, no rhonchi Cardiovascular: RRR, no significant murmur Gastrointestinal: soft, no distention, positive bowel sounds mild TTP PONCHO Musculoskeletal: no edema Neurological: non-focal, moves all 4 limbs Psychiatric: normal affect, A&O x 3 Dx/Plan (1) Abdominal pain Code(s): R10.9 - UNSPECIFIED ABDOMINAL PAIN Status: Resolved Comment: Uncertain eitiology. Possibly post surgical scar tissue pain from gardening and going on a walk. Other possibility would be passage of a retained stone, though intraoperative cholangiogram was negative. (2) Cholestatic jaundice Code(s): R17 - UNSPECIFIED JAUNDICE Status: Acute Comment: Bilirubin peaked at more than 6 yesterday, now down below 3. Uncertain eitiology. HIDA scan negative and all LFTs improving spontaneously. - Plan MRCP normal, d/c home and f/u LFTs as outpatient * . - Discharge Day Encounter end time: 08:30
--- NOTE | 2018-03-24 08:24 | DIS ---
DATE OF ADMISSION: 03/20/2018 DATE OF DISCHARGE: 03/23/2018 PRIMARY CARE PHYSICIAN: Jn Kearney MD REASON FOR ADMISSION: Abdominal pain and jaundice. DISCHARGE DIAGNOSES: 1. Abdominal pain, resolved. 2. Cholestatic jaundice, improving. 3. Hypertension. 4. Dyslipidemia. 5. Myocardial bridge. CONSULTATIONS: 1. General Surgery, Dr. Mauro. 2. Gastroenterology, Dr. Saavedra. PROCEDURES: 1. Right upper quadrant ultrasound showing no significant abnormalities as the patient is post cholecystectomy. 2. Hepatobiliary scan showing no evidence for biliary leak or biliary obstruction. 3. MRCP showing no evidence of choledocholithiasis and no evidence of obstruction of biliary tree. PERTINENT LABORATORY DATA: White blood cell count normal. Total bilirubin was 2.0 in the emergency room two days before admission; the day before yesterday, it jumped up to 4.6 in the outpatient setting; two days ago, it jumped up to 6.5; the day before discharge, it dropped back down to 2.8. AST is started at 3:18, went up to 500 and then dropped down to 151. ALT started at 2:10, jumped up to 538 and now it is down to 355. Lipase was initially normal, yesterday it jumped up to 293, though with no symptoms at that time. HISTORY OF HOSPITAL COURSE: This is a 47-year-old white male with a history of recurrent abdominal pain, who had a cholecystectomy earlier in the month. He had a couple of episodes of midepigastric and left-sided upper abdominal pain since the surgery. Most severe was couple of days before admission when he went to the emergency room. This pain radiated to his back. He was given pain medicines which helped it, noted to have some moderately elevated liver function tests. Follow up with his PCP, Dr. Jn Kearney in the office and recheck the liver function tests, which showed a significant jump in numbers and development of jaundice. He was directly admitted to the hospital. Dr. Mauro and Dr. Francisco were consulted. The above imaging was done. The patient's pain was resolved by the time of his admission, it has not returned. His tests also spontaneously started to improve with above imaging. Dr. Saavedra and Dr. Mauro were able to rule out biliary leak or any evidence of persistent obstruction and cleared him to be discharged. DISCHARGE MANAGEMENT: Discharge home. ACTIVITIES: As tolerated. DIET: Regular diet. MEDICATIONS: The patient is to resume all his home medications except he is to hold his statin for the next month until his liver function tests were normalized. I am also putting him on Protonix 40 mg daily for the next month. FOLLOWUP: Follow up with Dr. Jn Kearney in 1 to 2 weeks. He is also to follow up with Dr. Mauro in 2 weeks for recheck of his liver function tests and follow up with Dr. Saavedra in the next week as well. This doctor Fritz Tolliver dictating admission history and physical for Mr. dictating discharge summary for patient Noe golden thank you very much. Job ID: [id number]
== END 2018-03-23 09:55 | disposition home or self-care (01) | DRG 392 ==
LOC: T4-B 17:29
PROVIDERS: ADMIT Internal Medicine; ATTEND Internal Medicine
DX: R10.9 Unspecified abdominal pain (principal); Q24.5 Malformation of coronary vessels; R17 Unspecified jaundice; I10 Essential (primary) hypertension; R79.89 Other specified abnormal findings of blood chemistry; E78.5 Hyperlipidemia, unspecified; Z79.82 Long term (current) use of aspirin; Z90.49 Acquired absence of other specified parts of digestive tract; Z82.49 Family history of ischemic heart disease and other diseases of the circulatory system; Z83.3 Family history of diabetes mellitus; Z82.3 Family history of stroke
CPT/HCPCS: 36415; 74177; 74181; 76705; 78226; 80048; 80053; 80074; 80076; 81001; 82150; 82390; 82550; 82728; 83516; 83540; 83550; 83690; 84484; 85025; 85046; 86038; 86225; 93005; 96361; 96374; 96375; A9537; J1885; J2270; J2405